=== PATIENT | female | born 1955 | race Caucasian/White ===

== ENCOUNTER → 2018-02-27 12:09 | Outpatient (CLI) | payer OTHER, SELFPAY ==
--- NOTE | 2018-02-27 12:14 | RAD_ITS ---
STUDY: X-RAY - PELVIS AND LEFT HIP REASON FOR EXAM: Female, 62 years old. Left hip pain. TECHNIQUE: Radiological exam, hip, unilateral, with pelvis when performed; 2 or 3 views. COMPARISON: Comparison is made with prior study dated March 24, 2013. FINDINGS: There is a non-specific bowel gas pattern. Normal visualized soft tissue structures. There is narrowing with cortical sclerosis and osteophyte formation of the sacroiliac joint consistent with degenerative osteoarthritic changes. Normal bilateral superior and inferior pubic rami. Normal pubic symphysis. Normal bilateral ischial tuberosities. The patient is status post right hip replacement. There is good alignment. The left hip is unremarkable. RAD/Hip 2-3 Views with Pelvis IMPRESSION: Status post right hip replacement. There is good alignment. Electronically Signed: Jony Galan MD at 16:05 EDT Tel [phone], Service support ,
== END ==
PROVIDERS: Family Provider Internal Medicine; PCP Internal Medicine; Visit Provider Internal Medicine
DX: R10.32 Left lower quadrant pain (principal)
CPT/HCPCS: 73502

== ENCOUNTER → 2018-03-07 12:56 | Outpatient (CLI) | payer OTHER, SELFPAY ==
--- NOTE | 2018-03-07 12:59 | VDLE_ITS ---
Reason For Study: calf pain RIGHT LEFT CFV is compressible, spontaneous, phasic, GSV is normal. competent and demonstrates normal CFV is compressible, spontaneous, phasic, augmentation. competent, and demonstrates normal Procedure augmentation. Exam performed in department. FV is compressible, spontaneous, phasic, The exam was diagnostic. competent and demonstrates normal A preliminary report was called and/or faxed augmentation. to Dr. Zamarripa. POP V is compressible, spontaneous, phasic, competent and demonstrates normal augmentation. T/P Trunk is compressible. PTV is compressible. LT PerV is compressible. Interpretation Summary Deep veins of the left lower extremity are patent and compressible segmentally. There is no evidence of left lower extremity deep vein thrombosis. Valvular competence appears intact within the proximal deep venous system on the left . The left greater saphenous vein appears patent and compressible segmentally. Ordering Physician: Polina Zamarripa Performed By: Kenneth Rodriges RVT
--- NOTE | 2018-03-17 11:19 | LEAS_ITS ---
Arterial Study - Arterial Study Arterial Study: This is a 62-year-old female with symptoms of intermittent claudication, suggesting the presence of atherosclerotic peripheral arterial occlusive disease. The patient was brought to the noninvasive vascular laboratory at this time for the purpose of bilateral noninvasive lower extremity arterial assessment. Doppler signal assessment was used to evaluate the pulses at ankle level bilaterally. The posterior tibial and dorsalis pedis pulses were triphasic bilaterally. Segmental limb pressures were obtained at ankle level bilaterally. The right ankle pressure, as determined by posterior tibial pulse, was measured at 186 mmHg. The right ankle pressure, as determined by dorsalis pedis pulse, was measured at 204 mmHg. The left ankle pressure, as determined by posterior tibial pulse, was measured at 197 mmHg. The left ankle pressure, as determined by dorsalis pedis pulse, was measured at 183 mmHg. Pulse-volume recordings were obtained bilaterally and segmentally. Waveform amplitudes appeared to be satisfactory at all levels bilaterally, including low thigh, calf, ankle, and digital levels. Resting ankle-brachial indices were calculated bilaterally. The resting right ankle-brachial index was calculated to be 1.34. The resting left ankle- brachial index was calculated to be 1.30. The patient was ambulated on a treadmill at 1.6 mph at a 5% grade. The patient was able to tolerate exercise without complaints. Ankle pressures were obtained 1 minute following cessation of exercise. The right ankle pressure was measured at 225 mmHg. The left ankle pressure was measured at 200 mmHg. Impression: Based upon the findings of this resting and exercise noninvasive lower extremity arterial study, there is no evidence of significant atherosclerotic peripheral arterial occlusive disease in the lower extremities bilaterally. Triphasic waveforms were noted at ankle level bilaterally. Resting ankle-brachial indices are bilaterally normal. Ankle pressures are noted to augment following a period of exercise, which is a normal physiological response. In summary, this represents a normal resting and exercise noninvasive lower extremity arterial study bilaterally.
== END ==
PROVIDERS: Family Provider Internal Medicine; PCP Internal Medicine; Visit Provider Internal Medicine
DX: M79.662 Pain in left lower leg (principal)
CPT/HCPCS: 93970; 93971

== ENCOUNTER → 2018-03-12 12:21 | Outpatient (CLI) | payer OTHER, SELFPAY ==
--- NOTE | 2018-03-12 12:24 | US_ITS ---
STUDY: ULTRASOUND OF THE FEMALE PELVIS - COMPLETE REASON FOR EXAM: Female, 62 years old. Pain TECHNIQUE: Transabdominal and transvaginal COMPARISON: CT May 24, 2013 FINDINGS: The uterus is not seen. The vaginal cuff is unremarkable. Normal uterine cervix. The left and right ovary are not visualized. There is no free fluid in the pelvis. Urinary bladder volume is 206 cc. US/Pelvic (Non ) IMPRESSION: Non visualization of the ovaries. Uterus is not visualized and is most likely surgically absent. Electronically Signed: Arnaldo Mendoza MD at 16:57 EDT , Service support ,
== END ==
PROVIDERS: Family Provider Internal Medicine; PCP Internal Medicine; Visit Provider Internal Medicine
DX: R10.2 Pelvic and perineal pain (principal); I73.9 Peripheral vascular disease, unspecified
CPT/HCPCS: 76856; 93923

== ENCOUNTER 2018-04-29 13:38 | Emergency (ER) | payer OTHER, SELFPAY ==
--- NOTE | 2018-04-29 13:38 | DT_ITS ---
This patient was seen during an EMR downtime April 22, 2018 - April 29, 2018. This patient may have a combination of paper and electronic documentation or all paper documentation. All documentation is viewable within the e-chart portion of [facility] for each patient visit.
[2018-04-29 13:39] VITALS: BP 177/85; PULSE 71; RESP 16; TEMP 36; O2SAT 97; BMI 35.8
--- NOTE | 2018-04-29 14:30 | MRI_ITS ---
STUDY: MRI LUMBAR SPINE WITHOUT CONTRAST REASON FOR EXAM: Female, 62 years old. Back pain radiating to left leg and urinary incontinence TECHNIQUE: Standardized fat and water weighted pulse sequences were obtained in the sagittal and axial planes. COMPARISON: None FINDINGS: T12-L1: Normal endplates. Normal disc height, hydration and morphology. Normal bilateral facet joints. Normal central canal and bilateral lateral recesses. Normal bilateral intervertebral neural foramina. Normal lumbar lordosis. There is no substantial scoliosis. Normal conus medullaris that terminates at L1 L1-2: Normal endplates. Normal disc height, hydration and minimal annular bulge.. Normal bilateral facet joints. Normal central canal and bilateral lateral recesses. Normal bilateral intervertebral neural foramina. L2-3: Normal endplates. Normal disc height, desiccation and minimal annular bulge with small to moderate-sized left foraminal disc protrusion.. Normal bilateral facet joints. Normal central canal. Mild left lateral recess and moderate left neuroforaminal stenosis. L3-4: Normal endplates. Normal disc height, desiccation and tiny annular tear without focal disc protrusion. Normal bilateral facet joints. Normal central canal and bilateral lateral recesses. Normal bilateral intervertebral neural foramina. L4-5: Normal endplates. Normal disc height, desiccation and minor annular bulge and small left paracentral disc extrusion with inferior migration of disc fragment... Bilateral facet arthropathy and thickening of ligamenta flava.. Normal central canal . Mild to moderate bilateral recess and neuroforaminal encroachment. L5-S1: Grade 1 spondylolisthesis Normal endplates. Normal disc height, desiccation and small left posterolateral/foraminal disc/osteophyte protrusion.. Mild facet arthropathy. Normal central canal. Moderate right lateral recess stenosis and mild encroachment upon the right nerve root foramen with more severe narrowing of the left lateral recess and neuroforaminal stenosis Normal visualized sacral ala. Small right renal cysts are noted Normal visualized paraspinous soft tissue structures. MRI/Spine Lumbar (Routine) IMPRESSION: Multilevel spinal stenosis secondary to disc disease and bony hypertrophy most severe at L4-5 and L5-S1 greater on the left. Findings as above Electronically Signed: Neil Patel MD at 16:06 EDT , Service support ,
--- NOTE | 2018-04-29 14:34 | ED.VISSUMM ---
- ER Visit Summary Date of Service: 04/29/18 Chief Complaint: Lower back pain and urinary incontinence History of Present Illness: The patient is a 62 F with history of chronic back pain and prior discectomy secondary to spinal cord compression who presents with worsening lower back pain and episodic urinary incontinence. Patient was sent in for emergent evaluation by her primary care doctor. Patient has been having worsening of her left-sided lower back pain, now radiating into the groin and the posterior left leg. She is having episodes of urinary incontinence, with the last being 2 days ago, and is also having diarrhea. No fever, abdominal pain, nausea or vomiting. She is also having worsening weakness in the left leg. she has been getting physical therapy for her back, without improvement. Physical Examination: Vital signs: afebrile, hemodynamically stable, no hypoxia on room air General: well nourished, well developed, in no distress Skin: warm, dry, no rash, no pallor HEENT: normocephalic and atraumatic; PERRL, EOMI, moist mucous membranes Cardiovascular: regular rate and rhythm without murmurs, no peripheral edema, 2+ pulses all distal extremities Respiratory: No increased work of breathing, lungs are clear to auscultation bilaterally, no rales, rhonchi or wheezing Abdominal: Abdomen is soft, nontender with normoactive bowel sounds, no guarding or rebound, no masses, rectal tone intact MSK: 4/5 strength with dorsiflexion and plantar flexion in the left leg. Brisk patellar reflex. no deformities, normal strength in right lower extremity Neuro: Awake and alert, oriented ?4. No facial droop, sensation and symmetric, no saddle anesthesia Test Results: Abnormal Lab Results 04/29/18 04/29/18 04/29/18 14:46 14:46 16:30 WBC 6.4 RBC 5.21 Hgb 15.6 H Hct 46.2 MCV 88.7 MCH 29.9 MCHC 33.8 RDW 12.5 RDW Differential 40.1 Plt Count 237 MPV 10.2 Immature Gran % (Auto) 0.200 Neut % (Auto) 51.8 Lymph % (Auto) 37.3 [place] % (Auto) 7.9 Eos % (Auto) 2.5 Baso % (Auto) 0.3 Absolute Neuts (auto) 3.3 Absolute Lymphs (auto) 2.40 Total Counted Not Reportable ESR 1 Sodium 141 Potassium 3.5 Chloride 102 Carbon Dioxide 32.0 Anion Gap 7 BUN 13 Creatinine 0.79 Est GFR (MDRD) Af Amer 95 Est GFR (MDRD) Non-Af 78 BUN/Creatinine Ratio 16.4 Glucose 96 Calcium 8.7 C-React Prot Ext Range 5.36 H Urine Color Straw Urine Clarity Clear Urine pH 7.0 Ur Specific [place] 1.010 Urine Protein Negative Urine Glucose (UA) Normal Urine Ketones Negative Urine Occult Blood Negative Urine Nitrite Negative Urine Bilirubin Negative Urine Urobilinogen Normal Ur Leukocyte Esterase Negative Urine RBC 0-5 SEEN Urine WBC 0-5 SEEN Ur Squamous Epith Cells 0-5 SEEN Ur Transition Epith Cell 0-5 SEEN Urine Bacteria 0 SEEN Urine Mucus 0 SEEN Clinical Impression(s) from Imaging Studies Lumbar Spine MRI 04/29/18 14:30 IMPRESSION: Multilevel spinal stenosis secondary to disc disease and bony hypertrophy most severe at L4-5 and L5-S1 greater on the left. Findings as above Electronically Signed: Neil Patel MD at 16:06 EDT , Service support , Emergency Department Course and Treatment: Patient was offered and declined pain medication. Her presentation and history is concerning for possible cauda equina syndrome. Emergent MRI was performed, that showed no cauda equina syndrome or spinal cord impingement. She does have multilevel spinal stenosis, worse on the left, which is consistent with her symptoms. Labs were unremarkable, except for an elevated CRP. Patient was discussed with Dr. Zamarripa, and she requested patient follow up with her tomorrow morning so that they can arrange for follow-up with a back surgeon. This plan was discussed with the patient who was in agreement. She was able to ambulate out of the emergency department without any difficulty. Discharge home. Treatment Plan: [] Disposition: [] Impression: Spinal stenosis, acute on chronic back pain This note was generated with [facility] dictation software. It may contain incorrect words, spelling, and punctuation that were not noted in review of the chart prior to signing ED Disposition - Plan for ED Patient: Disposition: Home or Assisted Living Chief Complaint: Back Instructions: ED Neck Back Pain General Referrals: Polina Zamarripa DO [Primary Care Provider] - 1 Day Additional Instructions: Call Dr. Navarrete's office at 8am tomorrow morning and ask for the nurse Nova. They will get you scheduled for an appointment for tomorrow morning. If you have any worsening of your condition or any new concerning symptoms, please return immediately to the emergency department for another evaluation.
--- NOTE | 2018-04-29 14:37 | ED.DCSUM_ITS ---
- ER Visit Summary Date of Service: 04/29/18 Chief Complaint: Lower back pain and urinary incontinence History of Present Illness: The patient is a 62 F with history of chronic back pain and prior discectomy secondary to spinal cord compression who presents with worsening lower back pain and episodic urinary incontinence. Patient was sent in for emergent evaluation by her primary care doctor. Patient has been having worsening of her left-sided lower back pain, now radiating into the groin and the posterior left leg. She is having episodes of urinary incontinence, with the last being 2 days ago, and is also having diarrhea. No fever, abdominal pain, nausea or vomiting. She is also having worsening weakness in the left leg. she has been getting physical therapy for her back, without improvement. Physical Examination: Vital signs: afebrile, hemodynamically stable, no hypoxia on room air General: well nourished, well developed, in no distress Skin: warm, dry, no rash, no pallor HEENT: normocephalic and atraumatic; PERRL, EOMI, moist mucous membranes Cardiovascular: regular rate and rhythm without murmurs, no peripheral edema, 2 + pulses all distal extremities Respiratory: No increased work of breathing, lungs are clear to auscultation bilaterally, no rales, rhonchi or wheezing Abdominal: Abdomen is soft, nontender with normoactive bowel sounds, no guarding or rebound, no masses, rectal tone intact MSK: 4/5 strength with dorsiflexion and plantar flexion in the left leg. Brisk patellar reflex. no deformities, normal strength in right lower extremity Neuro: Awake and alert, oriented ?4. No facial droop, sensation and symmetric, no saddle anesthesia Test Results: Abnormal Lab Results 04/29/18 04/29/18 04/29/18 14:46 14:46 16:30 WBC 6.4 RBC 5.21 Hgb 15.6 H Hct 46.2 MCV 88.7 MCH 29.9 MCHC 33.8 RDW 12.5 RDW Differential 40.1 Plt Count 237 MPV 10.2 Immature Gran % (Auto) 0.200 Neut % (Auto) 51.8 Lymph % (Auto) 37.3 [place] % (Auto) 7.9 Eos % (Auto) 2.5 Baso % (Auto) 0.3 Absolute Neuts (auto) 3.3 Absolute Lymphs (auto) 2.40 Total Counted Not Reportable ESR 1 Sodium 141 Potassium 3.5 Chloride 102 Carbon Dioxide 32.0 Anion Gap 7 BUN 13 Creatinine 0.79 Est GFR (MDRD) Af Amer 95 Est GFR (MDRD) Non-Af 78 BUN/Creatinine Ratio 16.4 Glucose 96 Calcium 8.7 C-React Prot Ext Range 5.36 H Urine Color Straw Urine Clarity Clear Urine pH 7.0 Ur Specific [place] 1.010 Urine Protein Negative Urine Glucose (UA) Normal Urine Ketones Negative Urine Occult Blood Negative Urine Nitrite Negative Urine Bilirubin Negative Urine Urobilinogen Normal Ur Leukocyte Esterase Negative Urine RBC 0-5 SEEN Urine WBC 0-5 SEEN Ur Squamous Epith Cells 0-5 SEEN Ur Transition Epith Cell 0-5 SEEN Urine Bacteria 0 SEEN Urine Mucus 0 SEEN Clinical Impression(s) from Imaging Studies Lumbar Spine MRI 04/29/18 14:30 IMPRESSION: Multilevel spinal stenosis secondary to disc disease and bony hypertrophy most severe at L4-5 and L5-S1 greater on the left. Findings as above Electronically Signed: Neil Patel MD at 16:06 EDT , Service support , Emergency Department Course and Treatment: Patient was offered and declined pain medication. Her presentation and history is concerning for possible cauda equina syndrome. Emergent MRI was performed, that showed no cauda equina syndrome or spinal cord impingement. She does have multilevel spinal stenosis, worse on the left, which is consistent with her symptoms. Labs were unremarkable, except for an elevated CRP. Patient was discussed with Dr. Zamarripa , and she requested patient follow up with her tomorrow morning so that they can arrange for follow-up with a back surgeon. This plan was discussed with the patient who was in agreement. She was able to ambulate out of the emergency department without any difficulty. Discharge home. Treatment Plan: [] Disposition: [] Impression: Spinal stenosis, acute on chronic back pain This note was generated with [employer] dictation software. It may contain incorrect words, spelling, and punctuation that were not noted in review of the chart prior to signing ED Disposition - Plan for ED Patient: Disposition: Home or Assisted Living Chief Complaint: Back Instructions: ED Neck Back Pain General Referrals: Polina Zamarripa DO [Primary Care Provider] - 1 Day Additional Instructions: Call Dr. Navarrete's office at 8am tomorrow morning and ask for the nurse Nova. They will get you scheduled for an appointment for tomorrow morning. If you have any worsening of your condition or any new concerning symptoms, please return immediately to the emergency department for another evaluation.
[2018-04-29 14:59] LABS: Erythrocyte Sedimentation Rate 1 mm/hr (0-30)
[2018-04-29 15:01] LABS: Absolute Neutrophil Count 3.3 X10^3/uL (2.0-7.7); Basophil# 0.02 X10^3/uL; Basophil% 0.3 % (0-1); Eosinophil# 0.16 X10^3/uL; Eosinophils% 2.5 % (0-5); Hematocrit 46.2 % (37-47); Hemoglobin 15.6 g/dl (12.0-15.0); Lymphocyte % 37.3 % (19-41); Mean Corp Hgb Conc 33.8 g/gl (32-36); Mean Corpuscular Hgb 29.9 pg (27.0-32.0); Mean Corpuscular Volume 88.7 fL (81-99); Mean Platelet Vol. 10.2 fl (6.2-12.0); Monocyte# 0.51 X10^3/uL; Monocyte% 7.9 % (0-10); Neutrophil # 3.33 X10^3/uL (2.7-7.7); Neutrophil % 51.8 % (47-70); POSITIVE COUNT NO; POSITIVE DIFFERENTIAL NO; POSITIVE MORPHOLOGY NO; Platelet Count 237 K/mm3 (150-450); RBC Distribution Width CV 12.5 % (11.6-14.6); RBC Distribution Width SD 40.1 fl (35.1-43.9); Red Blood Count 5.21 M/mm3 (4.2-5.4); White Blood Count 6.4 K/mm3 (4.4-11.0)
[2018-04-29 15:08] LABS: Anion Gap 7 (5-15); BUN 13 mg/dL (7-18); BUN/Creat Ratio 16.4 RATIO (10-20); CRP 5.36 mg/L (0.0-3.0); Calcium,Total 8.7 mg/dL (8.5-10.1); Chloride 102 mmol/L (98-107); Creatinine, Serum 0.79 mg/dL (0.55-1.02); EST Glomerular Filtration Rate 78 mL/min (>60); Est Glom Filt Rate - Afr Amer 95 mL/min (>60); Glucose 96 mg/dL (74-106); Potassium 3.5 mmol/L (3.5-5.1); Sodium Level 141 mmol/L (136-145)
[2018-04-29 16:40] LABS: Bacteria 0 SEEN /hpf (None Seen); Mucous, Urine 0 SEEN /hpf (<or=2+)
[2018-04-29 16:57] LABS: Color, Urine Straw (Yellow); Glucose, Dipstick Normal (Normal); Ketone-Dipstick Negative (Negative); Leukocyte Esterase-Dipstick Negative /ul (Negative); Nitrite-Dipstick Negative (Negative); Occult Blood-Urine Negative /ul (Negative); Protein-Dipstick Negative (Negative); Urine Bilirubin Dipstick Negative (Negative); Urine Clarity Clear (Clear); Urine Urobilinogen Normal (Normal)
--- NOTE | 2018-04-29 16:57 | ED.DEP ---
ED Disposition - Plan for ED Patient: Disposition: Home or Assisted Living Chief Complaint: Back Instructions: ED Neck Back Pain General Referrals: Polina Zamarripa DO [Primary Care Provider] - 1 Day Additional Instructions: Call Dr. Navarrete's office at 8am tomorrow morning and ask for the nurse Nova. They will get you scheduled for an appointment for tomorrow morning. If you have any worsening of your condition or any new concerning symptoms, please return immediately to the emergency department for another evaluation.
[2018-04-29 17:03] LABS: Squamous Epithelial Cells - UA 0-5 SEEN /hpf (5-10); Transitional Epithelial - Ur 0-5 SEEN /hpf (0-5)
[2018-04-29 17:04] LABS: Red Blood Cells-Urine 0-5 SEEN /hpf (0-5)
[2018-04-29 17:05] LABS: White Blood Cells 0-5 SEEN /hpf (0-5)
[2018-04-29 17:34] VITALS: BP 145/77; PULSE 62; RESP 16; O2SAT 96
== END 2018-04-29 18:20 | disposition home or self-care (01) ==
PROVIDERS: Emergency Provider Emergency Medicine; Family Provider Internal Medicine; PCP Internal Medicine
DX: G89.29 Other chronic pain (principal); M54.9 Dorsalgia, unspecified; M48.00 Spinal stenosis, site unspecified; R53.1 Weakness
CPT/HCPCS: 72148; 80048; 81001; 85025; 85652; 86140; 99283; A4216

== ENCOUNTER → 2018-05-08 12:15 | Outpatient (CLI) | payer OTHER, SELFPAY ==
--- NOTE | 2018-05-08 13:32 | NEURO ---
NCS and/or EMG Patient Report Ordering Doctor: Polina Zamarripa DATE OF SERVICE: 05/08/18 Steph Infante is a 62 year old female who presents for electrodiagnostic testing of the left lower limb she has chief complaint of pain radiating from the low back to the left foot. Electrodiagnostic findings: Normal peroneal and tibial motor responses. Normal peroneal and tibial F-wave. H reflex normal bilaterally. Sensory responses within normal limits. Needle EMG testing shows no evidence of denervation with normal motor unit action potentials. Electrodiagnostic impression: This is a normal electrodiagnostic study of the left lower limb. There is no electrodiagnostic evidence for lumbar radiculopathy or peripheral neuropathy. If there are any further questions, please do not hesitate to contact me.
== END ==
PROVIDERS: Family Provider Internal Medicine; PCP Internal Medicine; Visit Provider Internal Medicine
DX: R29.898 Other symptoms and signs involving the musculoskeletal system (principal)
CPT/HCPCS: 95886; 95910

== ENCOUNTER → 2019-01-27 08:51 | Outpatient (CLI) | payer OTHER, SELFPAY | PROVIDERS: Family Provider Internal Medicine; PCP Internal Medicine; Referring Provider Internal Medicine; Visit Provider Internal Medicine | DX: R00.0 Tachycardia, unspecified (principal) | CPT/HCPCS: 93225; 93226 ==

== ENCOUNTER → 2019-02-06 13:20 | Outpatient (CLI) | payer SELFPAY ==
--- NOTE | 2019-02-06 13:26 | CT_ITS ---
STUDY: CT CHEST WITHOUT CONTRAST REASON FOR EXAM: Female, [address] CHEST OVER READ TO CALCIUM SCORE STUDY RADIATION DOSAGE (If Supplied By Facility): CTDIvol = ( 12.19 ) mGy, DLP = ( 195.04 ) mGycm TECHNIQUE: Transaxial imaging was performed without the administration of intravenous contrast material. Individualized dose optimization techniques were used for this CT. COMPARISON: None. FINDINGS: There is a subpleural nodule in the anterior segment of right lung upper lobe measures 3 mm most likely represents a benign lesion image #11. There is no demonstrated pleural abnormality. Normal heart and pericardium. Normal mediastinum. Normal hilar regions. Normal unenhanced pulmonary arteries. Normal aorta arch and descending thoracic aorta. There are multi-level degenerative changes of the thoracic spine. There is no demonstrated abnormality of the visualized upper abdomen. CT/Limited Chest CT w/CCTA IMPRESSION: There is no evidence of neoplasm or pneumonia. Electronically Signed: Mat Terry, at 12:45 EDT Tel , Service support ,
--- NOTE | 2019-02-06 17:24 | CA.SCORE ---
Calcium Scoring Date of Study:: 02/06/19 Coronary Calcium Scoring: Coronary calcium scoring: Left main: 0 Left anterior descendin.7 Left circumflex: 0 Right coronary artery: 7.57 Total Agatston score: 88.3 Conclusion: Conclusion: The total calcium score (88.3) is between the 75th and 90th percentile for women between the ages of 60 and 64. (Exact percentile calculated to be 78%; this means 77% of the population has a low score and 22% of the population has a higher calcium score than this patient.) Impression: Impression: A calcium score between 11?100 likely represents mild or minimal coronary artery disease, and mild plaque burden. Full evaluation of cardiac risk should include an assessment of all conventional risk factors, and the scores and percentile ranking is reported herein should be evaluated in this context.
== END ==
PROVIDERS: Family Provider Internal Medicine; PCP Internal Medicine; Referring Provider Internal Medicine; Visit Provider Internal Medicine
DX: Z82.49 Family history of ischemic heart disease and other diseases of the circulatory system (principal)
CPT/HCPCS: 75571; 76380

== ENCOUNTER → 2019-02-22 08:34 | Outpatient (CLI) | payer OTHER, SELFPAY ==
--- NOTE | 2019-02-22 08:35 | BI_ITS ---
MAMMOGRAPHY - BILATERAL SCREENING REASON FOR EXAM: Female, 63 years old. Routine annual screening examination. PERTINENT HISTORY: Non-contributory. TECHNIQUE: Digital bilateral breast magdiel (3D mammographic acquisition) in the CC and MLO projections. 2-D mediolateral oblique (MLO) and craniocaudad (CC) views of both breasts were obtained. CAD: Full Field Digital Mammography with Computer Added Detection was performed. COMPARISON: Comparison is made with prior study dated December 03, 2017 and January 03, 2016. FINDINGS: Breast Composition: There are scattered areas of fibroglandular density. There are no dominant masses or suspicious calcifications. Stable benign-appearing bilateral axillary lymph nodes. A tissue clip marker is once again seen in the anterior upper lateral aspect of the left breast. No other significant abnormalities are identified. There has been no significant change since the prior study. BI/SCREENING MAMM (CAD), BILAT IMPRESSION: Stable bilateral screening mammogram. Yearly follow-up mammogram recommended. (A) ASSESSMENT CATEGORY: BIRADS Category 2: Benign. A letter regarding these results will be sent to the patient by the facility within 30 days. Approximately 10% of breast cancers are not detected by mammography. A normal mammogram should not delay biopsy of a clinically suspicious abnormality. [id number] Electronically Signed: Jony Galan, at 8:56 EDT , Service support ,
== END ==
PROVIDERS: Family Provider Internal Medicine; PCP Internal Medicine; Referring Provider Internal Medicine; Visit Provider Internal Medicine
DX: Z12.31 Encounter for screening mammogram for malignant neoplasm of breast (principal)
CPT/HCPCS: 77063; 77067

== ENCOUNTER → 2020-04-06 07:13 | Outpatient (CLI) | payer OTHER, SELFPAY ==
--- NOTE | 2020-04-06 07:17 | BI_ITS ---
MAMMOGRAPHY - BILATERAL SCREENING REASON FOR EXAM: Female, 64 years old. Routine annual screening examination. PERTINENT HISTORY: Non-contributory. Prior left ultrasound guided breast biopsy. TECHNIQUE: Digital bilateral breast fay (3D mammographic acquisition) in the CC and MLO projections. 2-D mediolateral oblique (MLO) and craniocaudad (CC) views of both breasts were obtained. CAD: Full Field Digital Mammography with Computer Added Detection was performed. COMPARISON: Comparison is made with prior examination dated February 22, 2019 and December 03, 2017. FINDINGS: Breast Composition: There are scattered areas of fibroglandular density. There are no dominant masses or suspicious calcifications. A tissue clip marker is once again seen in the anterior slightly superior lateral aspect of the left breast. Benign-appearing bilateral axillary lymph nodes. No other significant abnormalities are identified. There has been no significant change since the prior study. BI/SCREEN MAMM (CAD) W/FAY BILAT IMPRESSION: Stable bilateral screening mammogram. Yearly follow-up mammogram recommended. (A) ASSESSMENT CATEGORY: BIRADS Category 2: Benign. A letter regarding these results will be sent to the patient by the facility within 30 days. Approximately 10% of breast cancers are not detected by mammography. A normal mammogram should not delay biopsy of a clinically suspicious abnormality. [id number] Electronically Signed: Jony Galan, at 8:50 EDT , Service support ,
== END ==
PROVIDERS: PCP Internal Medicine; Referring Provider Internal Medicine; Visit Provider Internal Medicine
DX: Z12.31 Encounter for screening mammogram for malignant neoplasm of breast (principal)
CPT/HCPCS: 77063; 77067

== ENCOUNTER → 2020-05-26 14:35 | Outpatient (CLI) | payer SELFPAY ==
--- NOTE | 2020-05-26 14:37 | CT_ITS ---
STUDY: CARDIAC CALCIUM SCORING - CT CHEST REASON FOR EXAM: Female, 65 years old. FAMILY HISTORY RADIATION DOSAGE (If Supplied By Facility): CTDIvol = ( 12.19 ) mGy, DLP = ( 170.66 ) mGycm TECHNIQUE: Axial non-enhanced images were acquired through the heart for the sole purpose of measuring coronary artery calcium. Individualized dose optimization techniques were used for this CT. COMPARISON: None. FINDINGS: Please see the patient''s medical record for a personalized calcium score. The visualized lungs are clear. The visualized soft tissues are within normal limits. CT/Limited Chest CT w/CCTA IMPRESSION: Please see the patient''s medical record for a personalized calcium score. Please go to: [email or web address] , for a description of the calculator. Electronically Signed: Erik Rodrigues, at 18:35 EDT Tel , Service support ,
[2020-05-26 14:41] VITALS: BP 173/61; PULSE 47; RESP 16; O2SAT 95; BMI 34.9
--- NOTE | 2020-05-26 17:31 | CA.SCORE ---
Calcium Scoring Date of Study:: 05/26/20 Coronary Calcium Scoring: High-resolution Computed Tomographic imaging of the chest was performed on [ ], with particular attention paid to the coronary arteries. Images from the examination were analyzed for the presence and extent of coronary artery calcification , using coronary calcium quantification software. The patient tolerated the procedure well and there were no complications. The results of the coronary calcification analysis are provided below. - Findings Left Main (LM): 8 Left Anterior Descending (LAD): 62 Left Circumflex (LCX): 0 Right Coronary Artery (RCA): 18 Total Agatston Score: 88 Calcium Scoring Interpretation: 0 No identifiable atherosclerotic plaque. Very low cardiovascular disease risk. <5% chance of presence coronary artery disease A Negative Examination 1-10 Minimal Plaque burden. Significant coronary artery disease very unlikely. 11-100 Mild plaque burden. Likely mild or minimal coronary atherosclerosis. 101-400 Moderate plaque burden Moderate non-obstructive coronary artery disease highly likely. Over 400 Extensive plaque burden. High likelihood of at least one significant coronary stenosis (>50% diameter) Calcium Score: 11 - 100 Likely mild or minimal coronary stenosis - The above is suggestive of mild coronary artery disease only, with a percentile ranking of 75 to 90% based on her age. A full evaluation of cardiac risk factors should include an assessment of all conventional risk factors and the scores and percentile rankings noted herein should be considered.
== END ==
PROVIDERS: PCP Internal Medicine; Referring Provider Internal Medicine; Visit Provider Internal Medicine
DX: Z82.49 Family history of ischemic heart disease and other diseases of the circulatory system (principal)
CPT/HCPCS: 75571; 76380

== ENCOUNTER → 2020-05-31 15:40 | Outpatient (CLI) | payer OTHER, SELFPAY ==
[2020-05-26 14:41] VITALS: BMI 34.9
--- NOTE | 2020-05-31 15:44 | RAD_ITS ---
STUDY: X-RAY - ABDOMEN/PELVIS REASON FOR EXAM: Female, 65 years old. POSTERIOR RIGHT LOWER ABDOMINAL PAIN FOR A FEW DAYS TECHNIQUE: KUB COMPARISON: None. FINDINGS: Normal visualized lung bases. There is an unremarkable bowel gas pattern. There is no demonstrated free abdominal air. The visualized liver, spleen and kidneys are grossly normal in size and morphology. Normal soft tissue structures. Lumbar spine demonstrates needle scoliosis and degenerative changes. Right hip prosthesis is noted. RAD/Abdomen Single View IMPRESSION: Normal x-ray examination of the abdomen and pelvis. Electronically Signed: Neil Patel MD at 16:51 EDT , Service support ,
== END ==
PROVIDERS: PCP Internal Medicine; Referring Provider Internal Medicine; Visit Provider Internal Medicine
DX: M54.9 Dorsalgia, unspecified (principal)
CPT/HCPCS: 74018

== ENCOUNTER → 2020-07-08 12:47 | Outpatient (CLI) | payer OTHER, SELFPAY ==
[2020-05-26 14:41] VITALS: BMI 34.9
--- NOTE | 2020-07-08 13:01 | CT_ITS ---
STUDY: CT ABDOMEN AND PELVIS WITH CONTRAST REASON FOR EXAM: Female, 65 years old. Syncopal episode 11 days ago with lt arm numbness and weakness. LLQ and lt flank pain. Prior rt hip replacement RADIATION DOSAGE (If Supplied By Facility): CTDIvol = ( 23.28 ) mGy, DLP = ( 1575.73 ) mGycm TECHNIQUE: Transaxial images were obtained from the dome of the diaphragm to the symphysis pubis with oral contrast. Oral and amp; IV Read i-CAT and amp; 100mL Isovue-300 was administered. Sagittal and coronal images were reconstructed. Individualized dose optimization techniques were used for this CT. COMPARISON: 2012 FINDINGS: The visualized lung bases are unremarkable. The visualized portions of the heart are within normal limits. Normal liver. There is non-visualization of the gallbladder, which may be secondary to either contraction or a prior cholecystectomy. Normal spleen. Normal pancreas. Normal bilateral adrenal glands. No obstructive uropathy, there are simple right renal cysts, no specific follow-up is needed Normal visualized stomach. Normal small intestine. There are multiple sigmoid colonic diverticula consistent with diverticulosis. The appendix is visualized and appears normal. Findings best seen on coronal recon images 67 through 72 Normal abdominal aorta. Normal inferior vena cava. Normal retroperitoneum. Normal urinary bladder. Normal abdominal wall. There are diffuse degenerative changes of the visualized lumbar spine, and pelvis. CT/Abdomen/Pelvis WITH Contrast IMPRESSION: No suspicious solid organ abnormality, simple right renal cysts, no specific follow-up needed No free intraperitoneal fluid, air, or suspicious adenopathy Normal appendix visualized Sigmoid diverticulosis Electronically Signed: Robert Nix MD at 14:06 EDT , Service support ,
--- NOTE | 2020-07-08 13:02 | CT_ITS ---
STUDY: CT BRAIN WITHOUT CONTRAST REASON FOR EXAM: Female, 65 years old. Syncopal episode 11 days ago with lt arm numbness and weakness. LLQ and lt flank pain. Prior rt hip replacement RADIATION DOSAGE (If Supplied By Facility): CTDIvol = ( 44.99 ) mGy, DLP = ( 748.30 ) mGycm TECHNIQUE: Transaxial CT imaging of the brain was performed without administration of intravenous contrast material. Individualized dose optimization techniques were used for this CT. COMPARISON: No relevant priors. FINDINGS: Normal soft tissue structures. Normal calvarium. Normal size ventricles and extra-axial spaces for the patient''s age. Normal white matter tracts of the cerebral hemispheres. Normal basal ganglia and thalami. Normal brainstem. Normal cerebellum. There is no intracranial hemorrhage. There are no findings of an acute ischemic infarction. Normal visualized paranasal sinuses. CT/Brain/Head without Contrast IMPRESSION: Normal unenhanced CT scan of the brain. Electronically Signed: Robert Nix MD at 13:45 EDT , Service support ,
[2020-07-08 13:31] LABS: CREATININE FINGERSTICK 0.8 mg/dL (0.55-1.02); EGFR FINGERSTICK > 60.0000 mL/min (>60)
== END ==
PROVIDERS: PCP Internal Medicine; Referring Provider Internal Medicine; Visit Provider Internal Medicine
DX: R19.00 Intra-abdominal and pelvic swelling, mass and lump, unspecified site (principal)
CPT/HCPCS: 70450; 74177; Q9967

== ENCOUNTER → 2020-07-09 12:40 | Outpatient (CLI) | payer OTHER, SELFPAY ==
[2020-05-26 14:41] VITALS: BMI 34.9
--- NOTE | 2020-07-09 12:45 | CDU_ITS ---
Reason For Study: SYNCOPE Rt. Velocities/BP Lt. Velocities/BP Prox CCA 237/27 cm/sec. Prox CCA 127/16 cm/sec. Mid CCA 117/22 cm/sec. Mid CCA 107/18 cm/sec. Dist CCA 89/19 cm/sec. Dist CCA 82/18 cm/sec. Prox ICA 74/19 cm/sec. Prox ICA 76/16 cm/sec. Mid ICA 77/24 cm/sec. Mid ICA 76/17 cm/sec. Dist ICA 97/24 cm/sec. Dist ICA 100/30 cm/sec. Rt. ICA/CCA = .8. Lt. ICA/CCA = .9. Prox ECA 86/12 cm/sec. Prox ECA 124/8 cm/sec. Rt. Vert. 57/13 cm/sec. Lt. Vert. 45/11 cm/sec. Right Extracranial There is homogeneous, smooth atherosclerotic plaque noted in the right common carotid artery. There is homogeneous, smooth atherosclerotic plaque noted in the right internal carotid artery. There is homogeneous, smooth atherosclerotic plaque noted in the right external carotid artery. Antegrade flow is noted in the right vertebral artery. Left Extracranial There is homogeneous, smooth atherosclerotic plaque noted in the left common carotid artery. There is no significant atherosclerotic plaque noted in the left internal carotid artery. There is homogeneous, smooth atherosclerotic plaque noted in the left external carotid artery. Antegrade flow is noted in the left vertebral artery. Procedure Carotid Duplex [id number]. Exam performed in department. Interpretation Summary Mild (<50%) stenosis right extracranial internal carotid. Mild (<50%) stenosis left extracranial internal carotid. Minimal atherosclerotic disease and plaque in the internal carotid arteries bilaterally. Flow within the vertebral arteries is antegrade bilaterally. Ordering Physician: Polina Zamarripa Referring Physician: Polina Zamarripa Performed By: Chantell Mcgee, RDCS, RVT
--- NOTE | 2020-07-09 12:45 | ECHOCS_ITS ---
Reason For Study: Syncope Procedure This was a 2D Doppler, Color Flow transthoracic echocardiogram. The study was technically difficult. Contrast injection was performed. Exam performed in department. Left Ventricle Normal LV size. The estimated ejection fraction is 60 %. No evidence for diastolic dysfunction. No regional wall motion abnormalities noted. Right Ventricle Normal RV size. Normal systolic function. Atria Normal left atrium. Normal right atrium. No doppler evidence for ASD. Mitral Valve There is no mitral valve stenosis. No mitral valve insufficiency. Tricuspid Valve There is no tricuspid stenosis. Unable to estimate RV systolic pressure due to inadequate jet, pulmonary artery pressure probably normal. Aortic Valve Trisinus/trileaflet aortic valve. There is no aortic stenosis. No aortic valve insufficiency. Pulmonic Valve There is no pulmonic valvular stenosis. No pulmonic valve insufficiency. Great Vessels Normal aortic root. Pericardium/Pleural No pericardial effusion. Medication 22 gauge I.V. with prn adaptor inserted into right arm. Diluted definity 2ml given slow IV push to enhance endocardial definition. Performed a rapid injection of agitated mix of 9 cc saline and 1cc air to assess for atrial septal defect. MMode/2D Measurements & Calculations LVIDd: 4.4 cm IVSd: 1.6 cm LVOT diam: 2.0 cm LVIDs: 2.4 cm LVPWd: 1.4 cm FS: 45.9 % LVOT area: 3.1 cm2 LAV(MOD-bp): 47.1 ml LA A4 area: 16.3 cm2 RA A4 area: 14.7 cm2 LAV(MOD-bp) Indexed: 25.5 ml/m2 LAV(MOD-sp2): 46.7 ml LAV(MOD-sp4): 41.8 ml Time Measurements MV dec time: 0.22 sec Doppler Measurements & Calculations MV E max bandar: 110.6 cm/sec Lat Peak E' Bandar: 7.9 cm/sec Med Peak E' Bandar: 8.8 cm/sec MV A max bandar: 95.4 cm/sec E/E' lat: 14.0 E/E' med: 12.6 MV E/A: 1.2 MV V2 max: 106.9 cm/sec MV P1/2t max bandar: 107.9 cm/sec Ao V2 max: 214.8 cm/sec MV max P.6 mmHg MV P1/2t: 101.6 msec Ao max P.4 mmHg MV V2 mean: 51.0 cm/sec MV dec slope: 311.0 cm/sec2 Ao V2 mean: 129.1 cm/sec MV mean P.3 mmHg Ao mean P.9 mmHg MV V2 VTI: 41.6 cm MVA(P1/2t): 2.2 cm2 Ao V2 VTI: 46.6 cm MVA(VTI): 2.6 cm2 JENNIFER(I,D): 2.3 cm2 JENNIFER(V,D): 2.0 cm2 LV V1 max: 139.1 cm/sec SV(LVOT): 109.0 ml PA V2 max: 118.5 cm/sec LV V1 max P.7 mmHg LV V1 mean P.6 mmHg LV V1 mean: 86.8 cm/sec LV V1 VTI: 34.7 cm Interpretation Summary The estimated ejection fraction is 60 %. No evidence for diastolic dysfunction. Ordering Physician: Polina Zamarripa Referring Physician: Polina Zamarripa Performed By: Jigar Rico RCS
== END ==
PROVIDERS: PCP Internal Medicine; Referring Provider Internal Medicine; Visit Provider Internal Medicine
DX: R55 Syncope and collapse (principal)
CPT/HCPCS: 93306; 93880; Q9957; A4216; C8929

== ENCOUNTER → 2021-06-23 07:49 | Outpatient (CLI) | payer OTHER, SELFPAY ==
[2020-05-26 14:41] VITALS: BMI 34.9
--- NOTE | 2021-06-23 07:51 | BI_ITS ---
MAMMOGRAPHY - BILATERAL SCREENING REASON FOR EXAM: Female, 66 years old. Routine annual screening examination. PERTINENT HISTORY: Screening TECHNIQUE: Digital bilateral breast fay (3D mammographic acquisition) in the CC and MLO projections. 2-D mediolateral oblique (MLO) and craniocaudad (CC) views of both breasts were obtained. CAD: Full Field Digital Mammography with Computer Added Detection was performed. COMPARISON: Previous mammogram obtained on 04/06/2020 FINDINGS: Breast Composition: Fatty There are no dominant masses or suspicious calcifications. No other significant abnormalities are identified. BI/SCRN MAMM (CAD)W/FAY BILAT IMPRESSION: Stable bilateral screening mammogram. Yearly follow-up mammogram recommended. (A) ASSESSMENT CATEGORY: BIRADS Category 1: Negative. A letter regarding these results will be sent to the patient by the facility within 30 days. BR1 Approximately 10% of breast cancers are not detected by mammography. A normal mammogram should not delay biopsy of a clinically suspicious abnormality. [id number] Electronically Signed: Jas Villalta DO at 16:11 EDT Tel , Service support ,
--- NOTE | 2021-06-23 08:19 | BD_ITS ---
STUDY: DUAL ENERGY X-RAY ABSORPTIOMETRY / DXA REASON FOR EXAM: Female, 66 years old. Z780. Patient is postmenopausal. TECHNIQUE: Bone Mineral Density (BMD) measurements of lumbar spine and left hip were obtained. COMPARISON: Comparison is made with prior examination dated 02/17/2016. FINDINGS: Lumbar Spine (L1-L4): g/cm2 (0.897) / T-score (-1.4) / Z-score (0.3) Findings are suggestive of osteopenia with a low fracture risk. Left Femur Total: g/cm2 (0.754) / T-score (-1.5) / Z-score (-0.4) Left Femoral Neck: g/cm2 (0.595) / T-score (-2.3) / Z-score (-0.8) The T-Scores on the most recent prior examination were: Lumbar Spine (L1-L4): There has been worsening of bone density since the previous examination. Left Femur Total: which represents a worsening of 8.7%. BD/Dexa Bone Density Study IMPRESSION: The patient is considered osteopenic as outlined below according to World Collins Organization (WHO) criteria with a high fracture risk. There has been worsening of bone density since the previous examination. Reference Information: The T-score is the number of standard deviations above or below the standard which is normal for young adults at their peak bone mineral density. The World Health Organization (WHO) interprets the T-scores as follows: Above -1 Normal bone density Between -1 and -2.5 Osteopenia Equal to / or below -2.5 Osteoporosis As a practical clinical guideline, osteopenia may be graded as follows: Mild -1 through -1.5 Moderate -1.6 through -2.0 Severe -2.1 through -2.4 The Z-score is the number of standard deviations above or below age-matched controls. A Z-score of less than -1.5 would be considered abnormal. References: 1. NIH Osteoporosis and Related Bone Diseases www osteo.org 2. International Society for Clinical Densitometry www iscd.org 3. National Osteoporosis Foundation www nof.org Electronically Signed: Jony Galan MD at 15:05 EDT , Service support ,
== END ==
PROVIDERS: PCP Internal Medicine; Referring Provider Internal Medicine; Visit Provider Internal Medicine
DX: Z12.31 Encounter for screening mammogram for malignant neoplasm of breast (principal); Z78.0 Asymptomatic menopausal state
CPT/HCPCS: 77063; 77067; 77080

== ENCOUNTER 2021-09-28 16:42 | Outpatient (CLI) | payer OTHER, SELFPAY ==
[2021-09-28 17:02] VITALS: BP 152/70; PULSE 44; RESP 16; TEMP 36.6; O2SAT 99; BMI 35.3
[2021-09-28] MEDS: 0.9% Saline Lock 10 ML Syringe IV (17:05)
[2021-09-28 17:35] VITALS: BP 143/65; PULSE 44; RESP 16; TEMP 36.8; O2SAT 95
[2021-09-28 18:37] VITALS: BP 162/69; PULSE 45; RESP 16; TEMP 36.6; O2SAT 100
== END 2021-09-28 18:36 | disposition home or self-care (01) ==
LOC: MS3OUT 16:42 → MS3 16:43
PROVIDERS: PCP Internal Medicine; Referring Provider Nurse Practitioner Adult Health; Visit Provider Nurse Practitioner Adult Health
DX: Z23 Encounter for immunization (principal); U07.1 COVID-19
CPT/HCPCS: J7050; M0245; Q0245; A4216

== ENCOUNTER → 2021-10-20 08:32 | Outpatient (CLI) | payer OTHER, SELFPAY | PROVIDERS: PCP Internal Medicine; Referring Provider Internal Medicine; Visit Provider Internal Medicine | DX: R00.2 Palpitations (principal) | CPT/HCPCS: 93225; 93226 ==

== ENCOUNTER → 2021-11-14 07:55 | Outpatient (CLI) | payer OTHER, SELFPAY ==
--- NOTE | 2021-11-14 07:57 | ECHOCS_ITS ---
Reason For Study: Palpitations Procedure This was a 2D Doppler, Color Flow transthoracic echocardiogram. The study was technically difficult. Contrast injection was performed. Exam performed in department. Left Ventricle Normal LV size. Mild concentric left ventricular hypertrophy. Left ventricular systolic function is normal. The estimated ejection fraction is 60 %. Stage 1 diastolic dysfunction. No regional wall motion abnormalities noted. Right Ventricle Normal RV size. Normal systolic function. Atria Normal left atrium. Normal right atrium. Mitral Valve Normal mitral valve. Tricuspid Valve Normal tricuspid valve. Aortic Valve Trisinus/trileaflet aortic valve. Pulmonic Valve The pulmonic valve is not well visualized. Great Vessels Normal aortic root. The pulmonary artery is normal size. Normal inferior vena cava. Pericardium/Pleural No pericardial effusion. Medication 22 gauge I.V. with prn adaptor inserted into right arm. Diluted definity 6ml given slow IV push to enhance endocardial definition. MMode/2D Measurements & Calculations LVIDd: 4.0 cm IVSd: 1.2 cm Ao root diam: 3.4 cm LVIDs: 2.4 cm LVPWd: 1.2 cm LA dimension: 3.0 cm FS: 39.9 % LAV(MOD-bp): 24.3 ml LA A4 area: 10.4 cm2 RA A4 area: 8.6 cm2 LAV(MOD-bp) Indexed: 13.5 ml/m2 LAV(MOD-sp2): 25.0 ml LAV(MOD-sp4): 22.2 ml Time Measurements MV dec time: 0.28 sec Doppler Measurements & Calculations MV E max bandar: 60.8 cm/sec Lat Peak E' Bandar: 5.8 cm/sec Med Peak E' Bandar: 5.0 cm/sec MV A max bandar: 86.4 cm/sec E/E' lat: 10.5 E/E' med: 12.2 MV E/A: 0.70 MV V2 max: 92.1 cm/sec MV P1/2t max bandar: 64.2 cm/sec Ao V2 max: 161.8 cm/sec MV max P.4 mmHg MV P1/2t: 115.6 msec Ao max P.5 mmHg MV V2 mean: 46.0 cm/sec MV dec slope: 162.6 cm/sec2 MV mean P.99 mmHg MV V2 VTI: 25.2 cm MVA(P1/2t): 1.9 cm2 LV V1 max: 97.0 cm/sec PA V2 max: 101.1 cm/sec LV V1 max P.8 mmHg ECHO/Echo Complete W/ Contrast Interpretation Summary Normal LV size. Left ventricular systolic function is normal. The estimated ejection fraction is 60 %. Stage 1 diastolic dysfunction. Mild concentric left ventricular hypertrophy. Contrast injection was performed. Ordering Physician: Polina Zamarripa Referring Physician: Polina Zamarripa Performed By: Jigar Rico RCS
== END ==
PROVIDERS: PCP Internal Medicine; Referring Provider Internal Medicine; Visit Provider Internal Medicine
DX: R00.2 Palpitations (principal)
CPT/HCPCS: 93306; Q9957; A4216; C8929

== ENCOUNTER → 2021-11-17 06:15 | Outpatient (CLI) | payer OTHER, SELFPAY ==
--- NOTE | 2021-11-17 09:14 | STRESSREP ---
Stress Test Report Exercise myocardial perfusion stress test. Stress protocol: Resting EKG demonstrates normal sinus rhythm with a rate of 66 bpm normal intervals are noted resting blood pressure is 132/80 mmHg. The patient exercised according to regular Agustin protocol for total duration of 7 minutes and 30 seconds. The maximum heart rate attained was 1 and 39 bpm which was 89% of maximum predicted heart rate the maximum workload was 10.1 metabolic equivalents. At rest there were no ST or T wave changes noted suggest ischemia and at peak exercise upsloping ST changes were noted with did not meet the criteria for ischemia. No clinical angina was noted. The peak blood pressure was 170/88 mmHg. Rate-pressure product was 20,500. Myocardial perfusion protocol. 15.0 mCi of technetium 99m sestamibi was injected at rest. The patient was exercised according to regular Agustin protocol. At peak exercise 45.0 mCi of technetium 99m sestamibi was injected stress images were obtained stress and rest images were reconstructed and compared in the short axis vertical long and horizontal long axis. Gated images were also obtained. Perfusion SPECT analysis: Review of the stress images demonstrate normal uptake of tracer noted in all areas of the myocardium. The resting images similarly demonstrate normal uptake of tracer noted in all areas of the myocardium. No areas of reversibility are noted suggest ischemia no previous infarct is noted. Gated SPECT analysis: The gated ejection fraction is over 80%. Conclusion: Normal exercise myocardial perfusion stress test with no evidence of ischemia. Preserved ejection fraction.
== END ==
PROVIDERS: PCP Internal Medicine; Visit Provider Internal Medicine
DX: I49.3 Ventricular premature depolarization (principal)
CPT/HCPCS: 78452; 93017; A9500; A4216

== ENCOUNTER 2022-02-16 08:19 | Emergency (ER) | payer OTHER, SELFPAY ==
[2022-02-16 08:20] VITALS: BP 146/92; PULSE 77; RESP 17; TEMP 36.1; O2SAT 96; BMI 36.6
--- NOTE | 2022-02-16 08:40 | CT_ITS ---
STUDY: CT ABDOMEN AND PELVIS WITH CONTRAST REASON FOR EXAM: Female, 66 years old. Left lower quadrant abdominal pain. Prior history of diverticulitis. RADIATION DOSAGE (If Supplied By Facility): CTDIvol = ( 21.83 ) mGy, DLP = ( 1538.65 ) mGycm TECHNIQUE: Transaxial images were obtained from the dome of the diaphragm to the symphysis pubis without oral contrast. IV 100mL Isovue-300 was administered. Sagittal and coronal images were reconstructed. Individualized dose optimization techniques were used for this CT. COMPARISON: Comparison is made with prior study 07/08/2020. FINDINGS: The visualized lung bases are unremarkable. The visualized portions of the heart are within normal limits. There is decreased attenuation of the liver consistent with steatosis. The patient is status post cholecystectomy. Normal spleen. Normal pancreas. Normal bilateral adrenal glands. Stable Nichols''s cyst in the posterior midportion of the right kidney. Stable 1 cm cyst in its lower pole. Normal left kidney. Normal visualized stomach. Normal small intestine. There is diverticulosis, with thickening of the colon wall, and pericolonic inflammation changes consistent with acute diverticulitis. There is non-visualization of the appendix. There is scattered atherosclerotic calcification of the abdominal aorta, without a demonstrated aneurysm. Normal inferior vena cava. Normal retroperitoneum. Normal urinary bladder. There is absence of the uterus consistent with a prior hysterectomy. Minimal amount of free fluid is seen in the cul-de-sac. There is a small umbilical hernia containing fat. There are degenerative changes of the visualized lumbar spine. Status post right total hip replacement. CT/Abdomen/Pelvis W IV Cont ONLY IMPRESSION: Findings suggestive of a noncomplicated acute sigmoid diverticulitis with increased markings in the surrounding mesenteric fat and a small amount of free fluid in the cul-de-sac. Diffuse fatty infiltration of the liver. Electronically Signed: Jony Galan MD at 9:40 EDT ,
--- NOTE | 2022-02-16 08:40 | ED.VIS.GI ---
HPI HPI - GI History of Present Illness Chief Complaint: Abd Pain Informant: patient Abdominal Pain/Flank Pain Onset: Days Context: Gradual Onset Timing: Continuous Quality: Cramping Location: RLQ and LLQ Current Severity: Mild Maximum Severity: Moderate Worsened by: Nothing Relieved by: Nothing Nausea/Vomiting/Emesis GI Symptom: Negative for Nausea and Vomiting Diarrhea/Melena/Hematochezia GI Symptom: Positive for Diarrhea; Negative for Melena and Hematochezia Associated Symptoms Associated Symptoms: Negative for Dysuria, Frequency, Hematuria and Urgency Narrative Narrative: 66-year-old female history of irritable bowel. Prior cholecystectomy and partial hysterectomy. States she had gradual onset lower abdominal pain 5 to 6 days ago. Primarily in the left lower quadrant. Started out as cramping. Thought she may be constipated use Dulcolax and had diarrhea after that. Denies any melena denies any dysuria. Denies any fever. Prior similar symptoms: No Recent Illness/Hospitalization: No PFSH PFSH Medical History COVID-19 (09/27/21) Essential hypertension Hyperlipidemia Obesity Home Medications calcium carbonate [Calcium 600] 600 mg PO DAILY 09/28/21 [History Last Taken Unknown] ergocalciferol (vitamin D2) 50,000 unit PO QWEEK 09/28/21 [History Last Taken Unknown] imipramine HCl 50 mg PO QHS 09/28/21 [History Last Taken Unknown] minoxidil [Minodyl] 2.5 mg PO DAILY 09/28/21 [History Last Taken Unknown] rosuvastatin [Crestor] 10 mg PO DAILY 09/28/21 [History Last Taken Unknown] alendronate 70 mg tablet 70 mg PO QWEEK tab 12/28/21 [History Last Taken Unknown] finasteride 5 mg tablet 5 mg PO DAILY tab 12/28/21 [History Last Taken Unknown] hydrochlorothiazide 25 mg tablet 25 mg PO DAILY tab 12/28/21 [History Last Taken Unknown] Allergy/AdvReac Type Severity Reaction Status Date / Time pregabalin [From Lyrica] Allergy Hives Verified 02/16/22 08:19 Family History Mother Hypertension Cancer Father CAD (coronary artery disease), Onset Age: 52 Diabetes Surgical History History of back surgery History of partial hysterectomy History of total hip arthroplasty Social History Smoking Status: Never smoker ROS ROS ED ROS Narrative Abdominal pain. Review of Systems ROS Unobtainable: Denies due to encephalopathy Constitutional Constitutional ED: Denies fever(s) ENT ENT ED: Denies ear pain Cardiovascular Cardiovascular: Denies chest pain Respiratory/Chest Respiratory/Chest: Denies dyspnea Gastrointestinal Gastrointestinal: Reports abdominal pain; Denies nausea Genitourinary Genitourinary ED: Denies dysuria Musculoskeletal Musculoskeletal: Denies myalgias Neurologic Neurologic: Denies headache(s) Psychiatric Psychiatric: Denies depression Endocrine Endocrinology: Denies polyuria Hematologic/Lymphatic Hematologic/Lymphatic: Denies easy bruising Allergic/Immunologic Allergic/Immunologic ED: Denies urticaria EXAM Physical Exam Narrative Exam Narrative: 66-year-old female vital signs stable afebrile. Exam benign. HEENT exam unremarkable. Lungs are clear. Heart regular rhythm. Abdomen soft nondistended normal bowel sounds. Tender in the lower quadrants more so on the left. No peritoneal signs. No hernia. No mass. No obstruction. No pulsatile mass. Otherwise exam benign. Const Vital Signs: 02/16/22 08:20 Temperature 96.9 F L Temperature Source Temporal Pulse Rate 77 Respiratory Rate 17 Blood Pressure 146/92 H Blood Pressure Mean 110 Pulse Ox 96 Oxygen Delivery Method Room Air Positive well nourished, well developed and obese; Negative for cachectic, contractures or unkempt General Appearance ED: well developed and NAD; Negative for unkempt, cachectic, contractures or pallor Nutritional Appearance: obese; Negative for cachectic HEENT Reports moist mucous membranes normocephalic and atraumatic Eyes PERRL and EOMs intact bilaterally Neck no lymphadenopathy, supple and no JVD General: Negative for tenderness Resp normal respiratory effort and clear to auscultation bilaterally Auscultation: Negative for rales, rhonchi or wheezes Cardio regular rate, regular rhythm, S1 normal heart sound, S2 normal heart sound and no murmurs GI non-distended and no masses; Negative for non-tender Inspection: Negative for abdominal distention Auscultation: normoactive bowel sounds; Negative for hypoactive bowel sounds Palpation: soft and tender; Negative for guarding, rigid or rebound tenderness present Back/Spine no CVA tenderness General Back: Negative for CVA tenderness Extremity full ROM General Extremety ED: Negative for edema or tenderness General Extremity: Negative for edema Neuro moves all extremities Sensorium / Orientation: alert, oriented to person, oriented to place and oriented to time; Negative for orientation impaired Motor Exam: strength 5/5 throughout Psych mental status grossly normal and thought process normal Appearance: Negative for unkempt Skin no wounds General Skin Exam: Negative for jaundice or pallor Lesions: no lesions Rashes: no rashes MDM MDM MDM Narrative Medical decision making narrative: 66-year-old female lower abdominal pain. CAT scan and labs are pending. She did not want anything for pain or nausea at this time. Differential diagnosis would include diverticulitis, UTI, constipation etc. Repeat exam patient is doing well at 9:53 AM. We went over her test results and her CAT scan results. Lab Data Attestation: I reviewed the patient's lab results. Lab results narrative: CBC White count 9. H&H of 15 and 44. Electrolytes unremarkable chloride 111 gap 6 normal BUN and creatinine. Liver enzymes are unremarkable except for a total bilirubin of 1.1. Urinalysis negative no nitrates no white cells and only rare bacteria. CAT scan consistent with sigmoid diverticulitis which is consistent with history and exam. Labs: Laboratory Results - last 24 hr 02/16/22 02/16/22 02/16/22 08:35 08:35 08:50 WBC 9.8 RBC 5.12 Hgb 15.7 H Hct 44.8 MCV 87.5 MCH 30.7 MCHC 35.0 RDW Std Deviation 39.4 RDW Coeff of Gabriela 12.3 Plt Count 201 MPV 11.0 Immature Gran % (Auto) 0.300 Neut % (Auto) 77.5 H Lymph % (Auto) 12.7 L [place] % (Auto) 8.0 Eos % (Auto) 1.2 Baso % (Auto) 0.3 Absolute Neuts (auto) 7.6 Absolute Lymphs (auto) 1.25 Nucleated RBC % 0 Sodium 143 Potassium 3.5 Chloride 111 H Carbon Dioxide 26.0 Anion Gap 6 BUN 15 Creatinine 0.80 Estim Creat Clear Calc 53.61 Est GFR (MDRD) Af Amer 92 Est GFR (MDRD) Non-Af 76 BUN/Creatinine Ratio 18.7 Glucose 118 H Calcium 8.8 Total Bilirubin 1.10 H AST 14 L ALT 20 Alkaline Phosphatase 61 Total Protein 7.3 Albumin 3.4 Globulin 3.9 Albumin/Globulin Ratio 0.9 Urine Color Yellow Urine Clarity Clear Urine pH 5.0 Ur Specific [place] 1.025 Urine Protein 30 H Urine Glucose (UA) Normal Urine Ketones Negative Urine Occult Blood 25 H Urine Nitrite Negative Urine Bilirubin Negative Urine Urobilinogen Normal Ur Leukocyte Esterase 25 H Urine RBC 0-5 SEEN Urine WBC 0-5 SEEN Ur Squamous Epith Cells 0-5 SEEN Urine Bacteria RARE Urine Mucus 0 SEEN Radiography Diagnostic Testing: Clinical Impression(s) from Imaging Studies Abdomen/Pelvis CT 02/16/22 08:40 IMPRESSION: Findings suggestive of a noncomplicated acute sigmoid diverticulitis with increased markings in the surrounding mesenteric fat and a small amount of free fluid in the cul-de-sac. Diffuse fatty infiltration of the liver. Electronically Signed: Jony Galan MD at 9:40 EDT , Discharge Plan Triage Chief Complaint: Abd Pain ED Provider: Josué Oconnell Dx/Rx/DC Orders Prescriptions: No Action hydrochlorothiazide 25 mg tablet 25 mg PO DAILY RF: 0 finasteride 5 mg tablet 5 mg PO DAILY RF: 0 alendronate 70 mg tablet 70 mg PO QWEEK RF: 0 imipramine HCl 50 mg tablet 50 mg PO QHS RF: 0 minoxidil [Minodyl] 2.5 mg Tablet 2.5 mg PO DAILY RF: 0 calcium carbonate [Calcium 600] 600 mg calcium (1,500 mg) Tablet 600 mg PO DAILY RF: 0 ergocalciferol (vitamin D2) 1,250 mcg (50,000 unit) capsule 50,000 unit PO QWEEK RF: 0 rosuvastatin [Crestor] 10 mg Tablet 10 mg PO DAILY RF: 0 Primary Care Provider: Polina Zamarripa
[2022-02-16 08:51] LABS: Absolute Lymphocyte Count 1.25 X10^3/uL (0.83-4.51); Absolute Neutrophil Count 7.6 X10^3/uL (2.0-7.7); Basophil# 0.03 X10^3/uL; Basophil% 0.3 % (0-1); Eosinophil# 0.12 X10^3/uL; Eosinophils% 1.2 % (0-5); Hematocrit 44.8 % (37-47); Hemoglobin 15.7 g/dL (12.0-15.0); Lymphocyte # 1.25 X10^3/ul (0.83-4.51); Lymphocyte % 12.7 % (19-41); Mean Corpuscular Hgb 30.7 pg (27.0-32.0); Mean Corpuscular Volume 87.5 fL (81-99); Monocyte# 0.79 X10^3/uL; NRBC Flagged by Analyzer 0 % (0-5); Neutrophil # 7.61 X10^3/uL (2.7-7.7); Neutrophil % 77.5 % (47-70); Platelet Count 201 K/mm3 (150-450); RBC Distribution Width CV 12.3 % (11.6-14.6); RBC Distribution Width SD 39.4 fl (35.1-43.9); Red Blood Count 5.12 M/mm3 (4.2-5.4); White Blood Count 9.8 K/mm3 (4.4-11.0)
[2022-02-16 08:57] LABS: Color, Urine Yellow (Yellow); Glucose, Dipstick Normal (Normal); Ketone-Dipstick Negative (Negative); Leukocyte Esterase-Dipstick 25 /ul (Negative); Mucous, Urine 0 SEEN /hpf (<or=2+); Nitrite-Dipstick Negative (Negative); Occult Blood-Urine 25 /ul (Negative); Protein-Dipstick 30 mg/dl (Negative); Specific Gravity, Urine 1.025 (1.002-1.030); Urine Bilirubin Dipstick Negative (Negative); Urine Clarity Clear (Clear); Urine Urobilinogen Normal (Normal)
[2022-02-16 09:03] LABS: Bacteria RARE /hpf (None Seen); Red Blood Cells-Urine 0-5 SEEN /hpf (0-5); Squamous Epithelial Cells - UA 0-5 SEEN /hpf (5-10); White Blood Cells 0-5 SEEN /hpf (0-5)
[2022-02-16] MEDS: morphine 8 MG/ML Syringe 6 MG IV (09:03)
[2022-02-16] MEDS: Ondansetron 4 MG/2 ML Vial IV (09:03)
[2022-02-16 09:07] LABS: ALB/GLOB Ratio 0.9 RATIO (0.9-2.4); AST(SGOT) 14 U/L (15-37); Alanine Aminotransfer ALT/SGPT 20 U/L (13-56); Albumin, Serum 3.4 g/dL (3.2-5.0); Alkaline Phosphatase 61 U/L (45-117); Anion Gap 6 (5-15); BUN 15 mg/dL (7-18); BUN/Creat Ratio 18.7 RATIO (10-20); Calcium,Total 8.8 mg/dL (8.5-10.1); Chloride 111 mmol/L (98-107); EST Glomerular Filtration Rate 76 mL/min (>60); Est Glom Filt Rate - Afr Amer 92 mL/min (>60); Estimated Creatinine Clearance 53.61 ml/min; Globulin 3.9 g/dL (2.2-4.2); Glucose 118 mg/dL (74-106); Potassium 3.5 mmol/L (3.5-5.1); Protein, Total 7.3 g/dL (6.4-8.2); Sodium Level 143 mmol/L (136-145)
[2022-02-16] MEDS: Ciprofloxacin 500 MG Tablet PO (10:28)
[2022-02-16] MEDS: metroNIDAZOLE 500 MG Tablet PO (10:28)
== END 2022-02-16 10:35 | disposition home or self-care (01) ==
PROVIDERS: Emergency Provider Emergency Medicine; PCP Internal Medicine; Visit Provider Emergency Medicine
DX: K57.32 Diverticulitis of large intestine without perforation or abscess without bleeding (principal); I10 Essential (primary) hypertension; E78.5 Hyperlipidemia, unspecified
CPT/HCPCS: 74177; 80053; 81001; 85025; 96374; 96375; 99284; Q9967; A4216; J2405

== ENCOUNTER → 2022-07-21 | Outpatient (CLI) | payer MEDICARE, SELFPAY ==
--- NOTE | 2022-07-21 09:13 | BI_ITS ---
MAMMOGRAPHY - BILATERAL SCREENING REASON FOR EXAM: Female, 67 years old. Routine annual screening examination. PERTINENT HISTORY: Non-contributory. TECHNIQUE: Digital bilateral breast fay (3D mammographic acquisition) in the CC and MLO projections. 2-D mediolateral oblique (MLO) and craniocaudad (CC) views of both breasts were obtained. CAD: Full Field Digital Mammography with Computer Added Detection was performed. COMPARISON: Comparison is made with prior study dated 06/23/2021 and 04/06/2020. FINDINGS: Breast Composition: There are scattered areas of fibroglandular density. There are no dominant masses or suspicious calcifications. A tissue clip marker is once again seen in the anterior slightly upper lateral aspect of the left breast. Stable small benign appearing bilateral axillary lymph nodes. No other significant abnormalities are identified. There has been no significant change since the prior study. BI/SCRN MAMM (CAD)W/FAY BILAT IMPRESSION: Stable bilateral screening mammogram. Yearly follow-up mammogram recommended. (A) ASSESSMENT CATEGORY: BIRADS Category 2: Benign. A letter regarding these results will be sent to the patient by the facility within 30 days. Approximately 10% of breast cancers are not detected by mammography. A normal mammogram should not delay biopsy of a clinically suspicious abnormality. [id number] Electronically Signed: Jony Galan MD at 10:54 EDT ,
== END | disposition home or self-care (01) ==
LOC: OPBI 09:12
PROVIDERS: PCP Internal Medicine; Visit Provider Internal Medicine
DX: Z12.31 Encounter for screening mammogram for malignant neoplasm of breast (principal)
CPT/HCPCS: 77063; 77067

== ENCOUNTER → 2022-12-21 | Outpatient (CLI) | payer MEDICARE, SELFPAY ==
--- NOTE | 2022-12-21 09:45 | MRI_ITS ---
HISTORY: Pain and numbness in feet, loss of feeling in left leg, groin pain, lumbar surgery 25 years ago. POST PROCEDURAL COMPLICATIONS, INCONTINENCE. TECHNIQUE: Multiplanar and multisequence MR images of the lumbar spine were obtained without intravenous contrast. 122 images. COMPARISON: None. FINDINGS: VERTEBRAE: Vertebral body heights maintained. Mild degenerative bone marrow endplate changes of L3-4, L4-5, and L5-S1. ALIGNMENT: Chronic 3 mm retrolisthesis of L5-S1. CONUS: Normal morphology and position of the conus medullaris at L1-2. INTERVERTEBRAL DISCS: T12-L1: Minimal disc bulge without significant central canal stenosis or foraminal narrowing based on the sagittal images. L1-2, L2-3: Very mild posterior disc bulge osteophyte complexes with facet arthropathy, slightly progressed from prior. Minimal narrowing of the thecal sac without significant foraminal narrowing. L3-4: Minimal disc bulge and facet arthropathy without significant spinal canal stenosis or foraminal narrowing. L4-5: Increased disc bulge with facet arthropathy resulting in moderate central canal stenosis and mild bilateral foraminal narrowing. L5-S1: Decompressive laminectomy without significant central canal stenosis. Disc protrusion eccentric to the left with abutment of the left S1 nerve root in combination with facet arthropathy resulting in increased moderate/severe left foraminal narrowing with abutment of the left L5 nerve root. Mild right foraminal narrowing. SOFT TISSUES: No paraspinal fluid collection. 2.3 cm and 8 mm right renal cysts. MRI/Spine Lumbar (Routine) IMPRESSION: Mild interval progression of degenerative disc disease. Moderate spinal canal stenosis and mild bilateral foraminal narrowing at L4-5. Left nerve root abutment or impingement at L5-S1 with increased left foraminal narrowing. Electronically Signed: Digna Chowdhury MD at 11:38 EST ,
== END | disposition home or self-care (01) ==
LOC: MRI 09:39
PROVIDERS: PCP Internal Medicine; Visit Provider Anesthesiology Pain Medicine
DX: M96.1 Postlaminectomy syndrome, not elsewhere classified (principal); M54.17 Radiculopathy, lumbosacral region
CPT/HCPCS: 72148

== ENCOUNTER → 2023-07-30 | Outpatient (CLI) | payer MEDICARE, SELFPAY ==
--- NOTE | 2023-07-30 14:42 | BI_ITS ---
MAMMOGRAPHY - BILATERAL SCREENING REASON FOR EXAM: Female, 68 years old. Routine annual screening examination. PERTINENT HISTORY: Non-contributory. Prior ultrasound-guided left breast biopsy. TECHNIQUE: Digital bilateral breast fay (3D mammographic acquisition) in the CC and MLO projections. 2-D mediolateral oblique (MLO) and craniocaudad (CC) views of both breasts were obtained. CAD: Full Field Digital Mammography with Computer Added Detection was performed. COMPARISON: Comparison is made with prior study dated July 21, 2022 and June 23, 2021. FINDINGS: Breast Composition: There are scattered areas of fibroglandular density. There are no dominant masses or suspicious calcifications. Stable fat-containing bilateral axillary lymph nodes. Once again, a tissue clip marker is seen in the anterior slightly upper lateral aspect of the left breast No other significant abnormalities are identified. There has been no significant change since the prior study. BI/SCRN MAMM (CAD)W/FAY BILAT IMPRESSION: Stable bilateral screening mammogram. Yearly follow-up mammogram recommended. (A) ASSESSMENT CATEGORY: BIRADS Category 2: Benign. A letter regarding these results will be sent to the patient by the facility within 30 days. Approximately 10% of breast cancers are not detected by mammography. A normal mammogram should not delay biopsy of a clinically suspicious abnormality. [id number] Electronically Signed: Jony Galan MD at 15:46 EDT ,
== END | disposition home or self-care (01) ==
LOC: OPBI 14:41
PROVIDERS: PCP Internal Medicine; Referring Provider Internal Medicine; Visit Provider Internal Medicine
DX: Z12.31 Encounter for screening mammogram for malignant neoplasm of breast (principal)
CPT/HCPCS: 77063; 77067

== ENCOUNTER → 2023-09-06 | Outpatient (CLI) | payer MEDICARE, SELFPAY ==
--- NOTE | 2023-09-06 07:29 | EKG12_ITS ---
Test Reason : PRE-OP Blood Pressure : / mmHG Vent. Rate : 037 BPM Atrial Rate : 037 BPM P-R Int : 182 ms QRS Dur : 086 ms QT Int : 476 ms P-R-T Axes : -16 -30 -03 degrees QTc Int : 373 ms Marked sinus bradycardia Left axis deviation Inferior infarct , age undetermined Anterolateral infarct (cited on or before 14-MAR-2013) Abnormal ECG When compared with ECG of 14-MAR-2013 10:19, Vent. rate has decreased BY 21 BPM Questionable change in initial forces of Lateral leads Confirmed by MANDO MARTIN, FRANCISCO J ([id number]), video effects editor LEIDY HUTSON ([id number]) on 09/07/2023 7:02:34 AM Referred By: Elain Ornelas Confirmed By:FRANCISCO J GILMORE MD
--- NOTE | 2023-09-06 07:29 | CT_ITS ---
CT RIGHT LOWER EXTREMITY WITH 3-D IMAGING CLINICAL INDICATION: Primary osteoarthritis. TECHNIQUE: Axial CT images of the right lower extremity (including right hip, right knee, and right ankle was performed without IV contrast material. Coronal and sagittal reformats were provided. RADIATION DOSAGE (If Supplied By Facility): CTDIvol = ( 26.87 ) mGy, DLP = ( 1462.38 ) mGycm COMPARISON: No relevant prior comparison study available. FINDINGS: Bones: There is a right hip arthroplasty in place, with no periprosthetic fracture. There is minimal joint space narrowing in the patellofemoral and medial femorotibial compartments of the right knee. There is slight lateral patellar subluxation. 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 There are small plantar and posterior calcaneal spurs. Osseous structures are normal without evidence of fracture or dislocation. No lytic or blastic osseous masses. Soft Tissues: There is a small right knee joint effusion. The deep soft tissue structures are unremarkable. The superficial soft tissues are unremarkable without evidence of edema, hematoma, or foreign body. CT/Extremity Lower without Contra IMPRESSION: Minimal degenerative arthrosis of the patellofemoral and medial femorotibial compartments of the right knee. Slight lateral patellar subluxation. Small right knee joint effusion. Electronically Signed: Joshua Haley MD at 9:32 EDT ,
[2023-09-06 08:46] LABS: Absolute Lymphocyte Count 1.56 X10^3/uL (0.83-4.51); Absolute Neutrophil Count 2.7 X10^3/uL (2.0-7.7); Basophil# 0.03 X10^3/uL; Basophil% 0.6 % (0-1); Eosinophil# 0.18 X10^3/uL; Eosinophils% 3.7 % (0-5); Hematocrit 45.2 % (37-47); Hemoglobin 14.9 g/dL (12.0-15.0); Lymphocyte # 1.56 X10^3/ul (0.83-4.51); Lymphocyte % 31.9 % (19-41); Mean Corpuscular Hgb 30.4 pg (27.0-32.0); Mean Corpuscular Volume 92.2 fL (81-99); Mean Platelet Vol. 11.1 fl (6.2-12.0); Monocyte# 0.38 X10^3/uL; Monocyte% 7.8 % (0-10); NRBC Flagged by Analyzer 0 % (0-5); Neutrophil # 2.71 X10^3/uL (2.7-7.7); Neutrophil % 55.4 % (47-70); Platelet Count 148 K/mm3 (150-450); RBC Distribution Width CV 12.4 % (11.6-14.6); RBC Distribution Width SD 42.3 fl (35.1-43.9); White Blood Count 4.9 K/mm3 (4.4-11.0)
[2023-09-06 09:24] LABS: Anion Gap 3 (5-15); BUN 20 mg/dL (7-18); Calcium,Total 9.2 mg/dL (8.5-10.1); Chloride 110 mmol/L (98-107); Creatinine, Serum 0.71 mg/dL (0.55-1.02); EST Glomerular Filtration Rate 87 mL/min (>60); Est Glom Filt Rate - Afr Amer 105 mL/min (>60); Glucose 108 mg/dL (74-106); Sodium Level 144 mmol/L (136-145)
[2023-09-06 18:23] LABS: Hemoglobin A1c 5.4 % (3.8-5.6)
== END | disposition home or self-care (01) ==
PROVIDERS: Physician Assistant; PCP Internal Medicine; Referring Provider Orthopaedic Surgery; Visit Provider Orthopaedic Surgery
DX: Z01.818 Encounter for other preprocedural examination (principal); M16.12 Unilateral primary osteoarthritis, left hip; M25.561 Pain in right knee; M17.11 Unilateral primary osteoarthritis, right knee; I10 Essential (primary) hypertension; E78.00 Pure hypercholesterolemia, unspecified; M25.461 Effusion, right knee
CPT/HCPCS: 36415; 73700; 80048; 83036; 85025; 93005

== ENCOUNTER → 2023-09-21 | Outpatient (CLI) | payer MEDICARE, SELFPAY | END | disposition home or self-care (01) | LOC: PSN 07:55 | PROVIDERS: PCP Internal Medicine; Referring Provider Internal Medicine; Visit Provider Internal Medicine | DX: R00.1 Bradycardia, unspecified (principal) | CPT/HCPCS: 93225; 93226 ==

== ENCOUNTER → 2023-10-01 | Outpatient (CLI) | payer MEDICARE, SELFPAY ==
--- NOTE | 2023-10-01 | KNEE_PTH ---
PATIENT: NATE DURIBN LOC: [facility] U#:[id number] AGE/SX: 68/F ROOM: RE10/01/[address]: Dr. Elian Ornelas DO : 1955 BED: DIS: 10/01/2023 SPEC #: [id number] RECD: 10/02/23 10:52 STATUS: [place] REQ #: [id number] PRASHANTH: 10/01/23 00:[address]: Elian Ornelas DEPT: SURGICAL PATHOLOGY RECD BY: Diana Smith ENTERED: 10/02/23 10:52 SP TYPE: TOTAL KNEE OTHR DR: Dr. Polina Zamarripa, [facility] Tissues: Knee, NOS Procedures: Decalcification bone/plaque Surgery Specimen Level IV HEADER OPERATION: Right total knee arthroplasty with robotic assistance PRE-OP DIAGNOSIS: Primary osteoarthritis right knee TISSUE SUBMITTED: Right knee bone and soft tissue MICROSCOPIC DIAGNOSIS Bone and tissue of right knee, total knee resection: Degenerative joint disease. Mild synovial hyperplasia. AM:marek 10/05/2023 MICROSCOPIC DESCRIPTION Slides are reviewed. GROSS DESCRIPTION Received is one container designated right knee bone and tissue. The specimen consists of multiple fragments of hollingsworth-yellow bone measuring in aggregate 14.0 x 13.0 x 2.0 cm. Also in the specimen container are multiple fragments of yellow-white soft tissue measuring in aggregate 9.0 x 8.0 x 2.0 cm. A number of bony fragments contain articular surfaces consistent with tibial plateau and femoral condyle and displaying prominent osteophyte formation, eburnation and bone erosion. Inventory Audit Clerk sections are submitted in two cassettes as follows: 1 - soft tissue, 2 - bone after decalcification. / AM:[place]k 10/02/2023 TC:5 [facility]: [id number]
== END | disposition home or self-care (01) ==
LOC: LABSPEC 15:29
PROVIDERS: PCP Internal Medicine; Referring Provider Orthopaedic Surgery; Visit Provider Orthopaedic Surgery
DX: M17.11 Unilateral primary osteoarthritis, right knee (principal)
CPT/HCPCS: 88305; 88311

== ENCOUNTER 2023-10-12 09:23 | Emergency (ER) | payer MEDICARE, SELFPAY ==
[2023-10-12 09:24] VITALS: BP 80/69; PULSE 58; RESP 16; TEMP 35.8; O2SAT 99; BMI 35.2
--- NOTE | 2023-10-12 09:44 | ED.VIS.BACK ---
HPI History of Present Illness Chief Complaint: Back Informant: patient Narrative Narrative: 2-3 days gradual onset pain in the left low back, with occasional locking up and muscle spasms triggered by movement, worse with movement better with rest, similar to prior episodes of back pain for which she sees pain management and occasionally has steroid injections which she did last a couple months ago, was on a 5-day course of prednisone 2 weeks ago for the same pain which helped and took it away, then 6 days ago she had a right total knee arthroplasty. She states the knee is doing great, she is ahead of her mobility schedule as far as therapy is concerned, she is getting around fine, it hurts to do therapy but for the most part she is doing very well and taking scheduled oxycodone with Tylenol that is not helping this back pain at all. She does not have any radiation down her leg. She has a history of disc disease and sciatica, states she takes gabapentin and has no nerve pain in her legs during any of this. She denies any fevers or chills. No recent injury or fall. She thinks it started because of lots of getting up and using her back muscles compensating for her recent knee surgery. She has a history of low back surgery in the past and has nerve pain as a result. Prior similar symptoms: Yes and With [facility] Medical History Bradycardia COVID-19 (09/27/21) Essential hypertension Hyperlipidemia Obesity Home Medications ergocalciferol (vitamin D2) 1,250 mcg (50,000 unit) capsule 50,000 unit PO QWEEK 09/28/21 [History Last Taken Unknown] rosuvastatin 10 mg tablet (Crestor) 10 mg PO DAILY 09/28/21 [History Last Taken Unknown] alendronate 70 mg tablet 70 mg PO QWEEK 12/28/21 [History Last Taken Unknown] amlodipine 2.5 mg tablet 2.5 mg PO DAILY 01/08/23 [History Last Taken Unknown] gabapentin 300 mg capsule 300 mg PO BID 09/20/23 [History Last Taken Unknown] orphenadrine citrate 100 mg tablet,extended release 100 mg PO BID PRN muscle spasm #15 tabs 10/12/23 [Rx Last Taken Unknown] Allergy/AdvReac Type Severity Reaction Status Date / Time pregabalin [From Lyrica] Allergy Hives Verified 09/20/23 08:31 Family History Mother Hypertension Cancer Father CAD (coronary artery disease), Onset Age: 52 Diabetes Surgical History History of back surgery History of partial hysterectomy History of total hip arthroplasty Social History Smoking Status: Never smoker ROS ROS ED Constitutional Constitutional ED: Denies chills or fever(s) Gastrointestinal Gastrointestinal: Denies abdominal pain, constipation, fecal incontinence, nausea or vomiting Genitourinary Genitourinary ED: Reports other Details: no urinary retention ; Denies abdominal discomfort or urinary incontinence Musculoskeletal Musculoskeletal: Reports as per HPI and back pain; Denies neck pain Integumentary Denies rash or wounds Neurologic Neurologic: Denies headache(s), paresthesias or weakness EXAM Physical Exam Const Vital Signs: 10/12/23 09:24 10/12/23 10:50 Temperature 96.4 F L Temperature Source Temporal Pulse Rate 58 L Respiratory Rate 16 Blood Pressure 80/69 L 120/56 L Blood Pressure Mean 72 77 Pulse Ox 99 Positive well nourished and well developed General Appearance ED: well developed and NAD HEENT Negative for trauma or tenderness Eyes PERRL and EOMs intact bilaterally Neck full ROM and supple GI normal to inspection, nondistended, normoactive bowel sounds, soft to palpation and non-tender Back/Spine normal to inspection Back/Spine Narrative: No rash or skin superficial tenderness. Lumbar Spine / Lower Back: ROM limited, paraspinal muscle tenderness left (Lumbar/buttock around the area of the SI joint and superior, reproducing the patient's pain) and straight leg raise negative bilaterally; Negative for lumbar spinal tenderness Extremity full ROM and no pedal edema Extremity Narrative: Resolving ecchymosis right thigh and lower leg. Well healing surgical incision dorsal right knee without any dehiscence or signs of infection. Normal inspection left lower extremity with negative straight leg raise. Neuro oriented x3 and no sensory deficits noted Sensorium / Orientation: alert Motor Exam: strength 5/5 throughout and clonus absent Deep Tendon Reflexes: Rt Patellar (L4): 2+, Lt Patellar (L4): 2+, Rt Ankle (S1): 2+ and Lt Ankle (S1): 2+ Deep Tendon Reflexes Back: Rt Patellar (L4): 2+, Lt Patellar (L4): 2+, Rt Ankle (S1): 2+ and Lt Ankle (S1): 2+ Plantar Reflex: Downgoing: bilateral Psych mental status grossly normal and thought process normal Skin no rashes or lesions noted and no wounds MDM MDM MDM Narrative Medical decision making narrative: I agree with the patient this seems musculoskeletal. Not concerned about a renal or retroperitoneal process, all of this is worse with movement and palpation, better with rest, and similar to symptoms she has had in the past. I am apprehensive about putting her on steroids right now because of the fact she just had a total knee replacement she is in agreement there, we treated her here with Dilaudid, prophylactic Zofran, and Norflex after confirming that she was not hypotensive, and she felt much better afterwards and was comfortable going home. Will give her prescription for Norflex to use as needed in addition to the oxycodone that she already has she states she does not need anymore. Discharge Plan Triage Chief Complaint: Back ED Provider: Oli Hart Dx/Rx/DC Orders Clinical Impression: Acute low back pain Instructions: ED Back Spasm, No Trauma Prescriptions: New orphenadrine citrate 100 mg tablet extended release 100 mg PO BID PRN (Reason: muscle spasm) Qty: 15 0RF No Action alendronate 70 mg tablet 70 mg PO QWEEK amlodipine 2.5 mg tablet 2.5 mg PO DAILY gabapentin 300 mg capsule 300 mg PO BID ergocalciferol (vitamin D2) 1,250 mcg (50,000 unit) capsule 50,000 unit PO QWEEK rosuvastatin [Crestor] 10 mg Tablet 10 mg PO DAILY Primary Care Provider: Polina Zamarripa Referrals: Jori Kraft DO [Non-Staff] - 3-5 Days if not improving Polina Zamarripa DO [Primary Care Provider] - Disposition Disposition: Home, Self Care
[2023-10-12] MEDS: Orphenadrine 60 MG/2 ML Ampul IM (10:08)
[2023-10-12] MEDS: HYDROmorphone 1 MG/ML Syringe IM (10:08)
[2023-10-12] MEDS: Ondansetron ODT 4 MG Tablet 8 MG PO (10:08)
[2023-10-12 10:50] VITALS: BP 120/56
== END 2023-10-12 11:13 | disposition home or self-care (01) ==
PROVIDERS: Emergency Provider Emergency Medicine; PCP Internal Medicine; Visit Provider Emergency Medicine
DX: M54.50 Low back pain, unspecified (principal); E78.5 Hyperlipidemia, unspecified; I10 Essential (primary) hypertension; Z86.16 Personal history of COVID-19
CPT/HCPCS: 96372; 99283

== ENCOUNTER → 2023-12-18 | Outpatient (CLI) | payer MEDICARE, SELFPAY ==
[2023-12-18 16:50] LABS: Absolute Lymphocyte Count 1.79 X10^3/uL (0.83-4.51); Absolute Neutrophil Count 3.3 X10^3/uL (2.0-7.7); Basophil# 0.05 X10^3/uL; Basophil% 0.9 % (0-1); Eosinophil# 0.14 X10^3/uL; Eosinophils% 2.5 % (0-5); Hematocrit 43.2 % (37-47); Hemoglobin 14.1 g/dL (12.0-15.0); Lymphocyte # 1.79 X10^3/ul (0.83-4.51); Lymphocyte % 31.4 % (19-41); Mean Corp Hgb Conc 32.6 g/dL (32-36); Mean Corpuscular Hgb 29.6 pg (27.0-32.0); Mean Corpuscular Volume 90.6 fL (81-99); Mean Platelet Vol. 11.6 fl (6.2-12.0); Monocyte# 0.37 X10^3/uL; Monocyte% 6.5 % (0-10); NRBC Flagged by Analyzer 0 % (0-5); Neutrophil # 3.33 X10^3/uL (2.7-7.7); Neutrophil % 58.3 % (47-70); Platelet Count 195 K/mm3 (150-450); RBC Distribution Width CV 12.4 % (11.6-14.6); Red Blood Count 4.77 M/mm3 (4.2-5.4); White Blood Count 5.7 K/mm3 (4.4-11.0)
[2023-12-18 16:53] LABS: Erythrocyte Sedimentation Rate 6 mm/hr (0-30)
[2023-12-18 17:08] LABS: CRP < 2.90 mg/L (0.0-3.0)
== END | disposition home or self-care (01) ==
LOC: LAB 15:36
PROVIDERS: PCP Internal Medicine; Referring Provider Orthopaedic Surgery; Visit Provider Orthopaedic Surgery
DX: Z96.651 Presence of right artificial knee joint (principal)
CPT/HCPCS: 36415; 85025; 85652; 86140

== ENCOUNTER → 2024-03-27 | Outpatient (CLI) | payer MEDICARE, SELFPAY | END | disposition home or self-care (01) | LOC: SL 19:48 | PROVIDERS: PCP Internal Medicine | DX: G47.33 Obstructive sleep apnea (adult) (pediatric) (principal) | CPT/HCPCS: 95811 ==

== ENCOUNTER → 2024-04-24 | Outpatient (CLI) | payer MEDICARE, SELFPAY | END | disposition home or self-care (01) | LOC: SL 09:29 | PROVIDERS: PCP Internal Medicine; Visit Provider Internal Medicine | DX: Z46.89 Encounter for fitting and adjustment of other specified devices (principal) ==

== ENCOUNTER → 2024-06-05 | Outpatient (CLI) | payer MEDICARE, SELFPAY | END | disposition home or self-care (01) | LOC: SL 13:54 | PROVIDERS: PCP Internal Medicine; Referring Provider Nurse Practitioner Acute Care; Visit Provider Nurse Practitioner Acute Care | DX: G47.33 Obstructive sleep apnea (adult) (pediatric) (principal) | CPT/HCPCS: 98960; G0463 ==

== ENCOUNTER → 2024-08-07 | Outpatient (CLI) | payer MEDICARE, SELFPAY ==
--- NOTE | 2024-08-07 14:29 | BI_ITS ---
MAMMOGRAPHY - BILATERAL SCREENING REASON FOR EXAM: Female, 69 years old. Routine annual screening examination. PERTINENT HISTORY: Non-contributory. TECHNIQUE: Digital bilateral breast fay (3D mammographic acquisition) in the CC and MLO projections. 2-D mediolateral oblique (MLO) and craniocaudad (CC) views of both breasts were obtained. CAD: Full Field Digital Mammography with Computer Added Detection was performed. COMPARISON: Comparison is made with prior study dated July 30, 2023 and July 21, 2022. FINDINGS: Breast Composition: There are scattered areas of fibroglandular density. There are no dominant masses or suspicious calcifications. Stable bilateral fat containing axillary lymph nodes. Once again, a tissue clip marker is seen the anterior slightly upper lateral aspect of the left breast No other significant abnormalities are identified. There has been no significant change since the prior study. BI/SCRN MAMM (CAD)W/FAY BILAT IMPRESSION: Stable bilateral screening mammogram. Yearly follow-up mammogram recommended. (A) ASSESSMENT CATEGORY: BIRADS Category 2: Benign. A letter regarding these results will be sent to the patient by the facility within 30 days. Approximately 10% of breast cancers are not detected by mammography. A normal mammogram should not delay biopsy of a clinically suspicious abnormality. [id number] Electronically Signed: Jony Galan MD at 8:18 EDT ,
--- NOTE | 2024-08-07 14:29 | BD_ITS ---
STUDY: DUAL ENERGY X-RAY ABSORPTIOMETRY / DXA REASON FOR EXAM: Female, 69 years old. [id number] TECHNIQUE: Bone Mineral Density (BMD) measurements of lumbar spine and left hip were obtained. COMPARISON: Comparison is made with prior study June 23, 2021. FINDINGS: Lumbar Spine (L1-L4): g/cm2 (0.937) / T-score (-0.7) / Z-score (1.1) Findings are suggestive of normal bone density with a low fracture risk. Left Femur Total: g/cm2 (0.836) / T-score (-0.9) / Z-score (0.5) Left Femoral Neck: g/cm2 (0.596) / T-score (-2.3) / Z-score (-0.6) The T-Scores on the most recent prior examination were: Lumbar Spine (L1-L4): There has been improvement of bone density since the previous examination. Left Femur Total: which represents an improvement of 10.9%. BD/Dexa Bone Density Study IMPRESSION: The patient is considered osteopenic as outlined below according to World Collins Organization (WHO) criteria with a high fracture risk. There has been improvement of bone density since the previous examination. Reference Information: The T-score is the number of standard deviations above or below the standard which is normal for young adults at their peak bone mineral density. The World Health Organization (WHO) interprets the T-scores as follows: Above -1 Normal bone density Between -1 and -2.5 Osteopenia Equal to / or below -2.5 Osteoporosis As a practical clinical guideline, osteopenia may be graded as follows: Mild -1 through -1.5 Moderate -1.6 through -2.0 Severe -2.1 through -2.4 The Z-score is the number of standard deviations above or below age-matched controls. A Z-score of less than -1.5 would be considered abnormal. References: 1. NIH Osteoporosis and Related Bone Diseases www osteo.org 2. International Society for Clinical Densitometry www iscd.org 3. National Osteoporosis Foundation www nof.org Electronically Signed: Jony Galan MD at 12:11 EDT ,
== END | disposition home or self-care (01) ==
LOC: OPBD 14:27
PROVIDERS: PCP Internal Medicine; Referring Provider Internal Medicine; Visit Provider Internal Medicine
DX: Z12.31 Encounter for screening mammogram for malignant neoplasm of breast (principal); Z78.0 Asymptomatic menopausal state
CPT/HCPCS: 77063; 77067; 77080

== ENCOUNTER → 2024-10-21 | Outpatient (CLI) | payer MEDICARE, SELFPAY | END | disposition home or self-care (01) | LOC: SL 11:38 | PROVIDERS: PCP Internal Medicine; Referring Provider Nurse Practitioner Acute Care; Visit Provider Nurse Practitioner Acute Care | DX: G47.33 Obstructive sleep apnea (adult) (pediatric) (principal) | CPT/HCPCS: 98960; G0463 ==

== ENCOUNTER → 2025-08-10 | Outpatient (CLI) | payer MEDICARE, SELFPAY ==
--- NOTE | 2025-08-10 08:45 | BI_ITS ---
EXAM: SCRN MAMM (CAD)W/FAY BILAT DATE: 08/10/2025 CLINICAL HISTORY: F, Age 70 y/o , SCREENING No family history. TECHNIQUE: Procedure Code: [id number] Modality: MG Procedure: SCRN MAMM (CAD)W/FAY BILAT COMPARISON: Prior exam(s) dated August 07, 2024.. FINDINGS: TISSUE DENSITY: The breasts are almost entirely fatty. Bilateral Breast Mammographic Findings: No significant masses, calcifications or other abnormalities are identified. A tissue clip marker is once again seen in the anterior upper lateral aspect of the left breast. No suspicious masses, areas of developing architectural distortion, or suspicious calcifications. There has been no significant interval change. BI/SCRN MAMM (CAD)W/FAY BILAT IMPRESSION: Stable bilateral screening mammogram. OVERALL FINAL ASSESSMENT BI-RADS 2: BENIGN RECOMMENDATION: Routine annual follow-up in 1 Year Additional Recommendation none A letter with findings and recommendations will be mailed to the patient. Reading Location: [place] [id number]
== END | disposition home or self-care (01) ==
LOC: OPBI 08:38
PROVIDERS: PCP Internal Medicine; Referring Provider Internal Medicine; Visit Provider Internal Medicine
DX: Z12.31 Encounter for screening mammogram for malignant neoplasm of breast (principal)
CPT/HCPCS: 77063; 77067

== ENCOUNTER 2025-11-13 09:42 | Emergency (ER) | payer MEDICARE, SELFPAY ==
[2025-11-13 09:44] VITALS: BP 156/98; PULSE 80; RESP 18; TEMP 36.8; O2SAT 98; BMI 34.2
--- NOTE | 2025-11-13 10:18 | RAD_ITS ---
PROCEDURE: TIBIA FIBULA 2 VIEWS 11/13/2025 REASON FOR EXAM: PAIN TECHNIQUE: Procedure Code: RADTF Modality: DX Procedure: TIBIA FIBULA 2 VIEWS COMPARISON: None FINDINGS: There are no fractures or dislocations. No osteolytic or osteoblastic lesions are seen. Joint spaces are well preserved. No appreciable soft tissue swelling is noted. RAD/Tibia & Fibula 2 Views IMPRESSION: Unremarkable left tibia and fibula study. Reading Location: [id number]
--- NOTE | 2025-11-13 10:24 | EX.ED.DYSGE1 ---
HPI History of Present Illness Chief Complaint: Other, Pain/Inj Narrative Narrative: Patient is a 70-year-old female with past medical history of hypertension, hyperlipidemia who presented to the emergency department the chief complaint of left vega pain. States that she has been having this pain for a week or more now however the last few days it has been progressively worsening. Patient denies recent travel history denies any history of blood clots she denies any trauma or injuries to her leg. States that she tried to call her family doctor who could not get her in and she tried to call [facility] who states that she cannot be seen until December 08 therefore she came here to be further evaluated. Patient states that her pain is in her vega and feels deep in nature states that she does feel like she is having cramping at times as well. [facility] Medical History Nutritional counseling Hyperlipidemia Essential hypertension Bradycardia Obesity COVID-19 (09/27/21) Home Medications ?Medication ?Instructions ?Recorded ?Last Taken ?Type ergocalciferol (vitamin D2) 1,250 10,000 unit PO QWEEK 09/28/21 Unknown History mcg (50,000 unit) capsule rosuvastatin 10 mg tablet (Crestor) 10 mg PO DAILY 09/28/21 Unknown History amlodipine 2.5 mg tablet 2.5 mg PO DAILY 01/08/23 Unknown History calcium carbonate (Calcium 500) 500 mg PO DAILY 10/28/25 Unknown History finasteride 5 mg tablet 5 mg PO DAILY 10/28/25 Unknown History phentermine 37.5 mg capsule 37.5 mg PO DAILY #30 caps 10/28/25 Unknown Rx spironolactone 100 mg tablet 100 mg PO DAILY 10/28/25 Unknown History ondansetron 4 mg disintegrating 4 mg PO Q6H PRN nausea and 11/13/25 Unknown Rx tablet vomiting #20 tabs oxycodone-acetaminophen 5 mg-325 1 tab PO Q6H PRN pain 2 days #8 11/13/25 Unknown Rx mg tablet (Endocet) tabs Allergy/AdvReac Type Severity Reaction Status Date / Time pregabalin (From Lyrica) Allergy Hives Verified 11/13/25 09:45 Family History Mother Hypertension Cancer Father CAD (coronary artery disease), Onset Age: 52 Diabetes Surgical History History of total hip arthroplasty History of partial hysterectomy History of back surgery Social History Smoking Status: Never smoker alcohol intake: current alcohol intake frequency: holidays/special occasions only Alcohol type: wine substance use type: does not use ROS ROS ED ROS Narrative Constitutional: Denies any fevers, chills, Neurological: Denies numbness, weakness, tingling Musculoskeletal: Complains of left vega pain as noted above Skin: Denies any rashes or lesions EXAM Physical Exam Narrative Exam Narrative: General: Patient is lying in bed resting comfortably not appear to be acute distress Head: Atraumatic, normocephalic Eyes: PERRL bilaterally, EOMI bilaterally, no conjunctival injection noted Neck: Soft, supple, trachea midline Cardiovascular: Regular rate and rhythm Respiratory: Clear to auscultation bilaterally Musculoskeletal: Compartments in the left lower extremity are soft compressible Extremities: DP pulses +2/4 in the left lower extremity, +5/5 strength in the bilateral upper and lower extremities patient has no pain upon palpation posterior leg Neurological: Patient following commands that she was at [facility] year is 2024 sensation grossly intact Skin: Warm, dry, intact no rashes or lesions noted Const Vital Signs: 11/13/25 09:44 11/13/25 10:16 Temperature 98.2 F Temperature Source Oral Pulse Rate 80 Respiratory Rate 18 Respiratory Effort Normal Respiratory Pattern Normal Blood Pressure 156/98 H Blood Pressure Mean 117 Pulse Ox 98 Oxygen Delivery Method Room Air MDM MDM MDM Narrative Medical decision making narrative: Patient is a 70-year-old female who presented to the emergency department with a chief complaint of left leg pain. On the differential diagnose includes but not limited to musculoskeletal strain, shinsplints, pathologic fracture although low suspicion for this, electrolyte abnormality. Once workup is obtained reviewed she will be reevaluated. Patient was given Toradol. Patient's x-ray of the tibia and fibula was reviewed by myself and by radiology showed no acute fracture or dislocation. Patient's BMP was reviewed as well which showed a normal sodium 139, potassium normal at 4.5, creatinine normal at 0.83 patient's glucose was noted be 102. Discussed results with the patient she would like to go home at this point in time. She is advised to follow-up with her doctor in outpatient setting. She is advised to rotate Tylenol and ibuprofen [id number] and she will be given a prescription for Endocet and Zofran for severe pain she is advised to not operate anything under the influence this medication. She is encouraged to return with worsening symptoms or any concerns all question concerns answered she was discharged home in stable condition Lab Data Labs: Laboratory Results - last 24 hr 11/13/25 10:30 Sodium 139 Potassium 4.5 Chloride 105 Carbon Dioxide 26.6 Anion Gap 7 BUN 18 Creatinine 0.83 Estim Creat Clear Calc 63.02 Est GFR (MDRD) Non-Af 77 BUN/Creatinine Ratio 22.1 H Glucose 102 H Calcium 9.5 Radiography Diagnostic Testing: Clinical Impression(s) from Imaging Studies Tibia/Fibula X-Ray 11/13/25 10:18 IMPRESSION: Unremarkable left tibia and fibula study. Reading Location: [facility] Discharge Plan Triage Chief Complaint: Other, Pain/Inj ED Provider: Tacos Arguello Dx/Rx/DC Orders Clinical Impression: Left leg pain, Essential hypertension, Hyperlipidemia Prescriptions: New ondansetron 4 mg tablet,disintegrating 4 mg PO Q6H PRN (Reason: nausea and vomiting) Qty: 20 0RF oxycodone-acetaminophen [Endocet] 5-325 mg tablet 1 tab PO Q6H PRN (Reason: pain) 2 Days Qty: 8 0RF No Action amlodipine 2.5 mg tablet 2.5 mg PO DAILY spironolactone 100 mg tablet 100 mg PO DAILY calcium carbonate [Calcium 500] 500 mg calcium (1,250 mg) tablet,chewable 500 mg PO DAILY finasteride 5 mg tablet 5 mg PO DAILY phentermine 37.5 mg capsule 37.5 mg PO DAILY Qty: 30 0RF Rx Instructions: must administer 30 minutes before or 1-2 hours after breakfast wt 178 ergocalciferol (vitamin D2) 1,250 mcg (50,000 unit) capsule 10,000 unit PO QWEEK rosuvastatin [Crestor] 10 mg Tablet 10 mg PO DAILY Primary Care Provider: Polina Zamarripa Referrals: Polina Zamarripa, [Primary Care Provider, Internal Medicine] Activity Restrictions/Additional Instructions: Follow-up with your doctor in the outpatient setting. Your x-ray did not show acute findings your labs were normal. Rotate Tylenol and ibuprofen [id number] when you do this you can take something every 3 hours for pain with a max dose of Tylenol in 24 hours 4000 mg max dose of ibuprofen in 24 hours 3200 mg. Use the Endocet Zofran for severe pain do not operate anything under the influence of the Endocet as it will make you sleepy and drowsy. Return with worsening symptoms or any other concerns Print Language: Tanzanian Disposition Disposition: Home, Self Care
[2025-11-13] MEDS: Ketorolac 30 MG/ML Syringe IV (10:29)
[2025-11-13 11:44] LABS: Anion Gap 7 (7-18); BUN 18 mg/dL (4-19); BUN/Creat Ratio 22.1 RATIO (10-20); Calcium,Total 9.5 mg/dL (7.6-11.0); Carbon Dioxide 26.6 mmol/L (20.0-29.0); Chloride 105 mmol/L (96-106); Estimated Creatinine Clearance 63.02 ml/min (50-250); Glucose 102 mg/dL (70-99); Potassium 4.5 mmol/L (3.5-5.1)
[2025-11-13 12:11] VITALS: BP 130/77; PULSE 69; RESP 18; TEMP 36.7; O2SAT 100
== END 2025-11-13 12:16 | disposition home or self-care (01) ==
PROVIDERS: Emergency Provider Emergency Medicine; PCP Internal Medicine; Visit Provider Emergency Medicine
DX: M79.605 Pain in left leg (principal); I10 Essential (primary) hypertension; E78.5 Hyperlipidemia, unspecified; Z90.710 Acquired absence of both cervix and uterus; Z86.16 Personal history of COVID-19
CPT/HCPCS: 73590; 80048; 96374; 99283; A4216